=== PATIENT | female | born 1945 | race Caucasian/White ===

== ENCOUNTER → 2016-09-26 | Outpatient (CLI) | payer OTHER ==
[~2016-09-26] VITALS: Ht 167.6 cm; Wt 52.7 kg
[~2016-09-26] MED LIST: ALEVE220 MG PO; APAP500 PO; ASPIR 8181 MG PO; CADUET 2.5 MG-1 EACH PO; CELEBREX 200 M200 MG PO; CENTRUM SILVER1 EAC2 PO; HYDROXYCHLOROQ200 M1 PO; IBUPROFEN 200200 M1 PO; LISINOPRIL5 MG PO; MOBIC7.5 MG PO; OSCAL; PREDNISONE 5 MG5 M1 PO; TRAMADOL 50 MG50 MG PO; VITAMIN C500 M1 PO; VITAMIN D1000 UNI1 PO
--- NOTE | ~2016-09-26 | HPC ---
[facility] [address] [place] [address] PAIN MANAGEMENT CONSULTATION Name: LUAN VALDEZ Room #: REG Naveed Carlos#: [id number] Admission: 09/26/16 Attend Phys: Daren Garcia MD Discharge: Date of : 47 Report #: [id number] THIS REPORT FOR: //name// CC: Daren Patel MD DATE OF SERVICE: 09/26/2016 CHIEF COMPLAINT: Right thumb pain and radiating, burning, tingling and numbness into the right thumb and index finger as well as mild neck pain. HISTORY OF PRESENT ILLNESS: The patient comes today for evaluation of symptoms described above. I have seen her previously for spondylosis of the lumbar spine and sacroiliac joint pain, which has improved. She complains that she has had going worsening of pain in her right thumb, where she has deformity and some atrophy of the interosseous muscles between her thumb and her index finger. 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 She and her have a trip planned for 6 weeks to [place] coming up in mid October. She is concerned that she will be unable to share in the driving duties. She wakens often times at night with some pain that radiates into her hand from her neck. Repositioning of her neck oftentimes alleviates the symptoms. These have not been bothersome until recently. She has had no x-rays, no previous procedures and no history of trauma. PHYSICAL EXAMINATION: GENERAL: She is a pleasant and attractive 70-year-old, fit and healthy appearing. NECK: Reveals good range of motion with no restrictions. She has normal curvature. She has mild tenderness located over the vertebral prominence. MUSCULOSKELETAL: Strength in the upper extremities, biceps, triceps, brachioradialis and deltoid are all tested and normal. She has some difficulty with cupola hoist operator because of the thumb. Sensation is normal. Deep tendon reflexes are trace at biceps, triceps and brachioradialis. She also has decreased deep tendon reflexes in the lower extremities. No evidence of spinal stenosis or cord compression. No focal weakness is noted in any of the muscle collaborative teacher of the upper or lower extremities. X-rays none. IMPRESSION: 1. Cervical spondylosis with likely intermittent radicular symptoms following [facility] [address] [place] [address] PAIN MANAGEMENT CONSULTATION Name: LUAN VALDEZ Suzan Room #: REG [facility] [id number] Admission: 09/26/16 Attend Phys: Daren Garcia MD Discharge: Date of : 46 Report #: [id number] the C6 distribution into the right thumb and index finger. These are not severe and are not constant. 2. Osteoarthritis right thumb, metacarpophalangeal joint. RECOMMENDATIONS: Discussion about how to manage these likely degenerative conditions followed. We decided that we will perform some plain film x-rays to look for alignment changes and degenerative disk disease that can be picked up on a plain film x-ray as a scanning test. It should give her some indication of whether or not she has any significant cervical changes that may need to be addressed further or need to be watched over time. I have also recommended x-ray of the right hand and thumb to determine the degree of osteoarthritis in that joint. It can also determine whether or not there seems to be a ____ joint space, so that I can perform an injection for her before she and her travel and that ____ phalangeal injection can be quite helpful and provide duration of response suitable as a tool. She continues on Celebrex as prescribed earlier for her low back condition, and a followup visit is scheduled after we have the results for x-rays. <ELECTRONICALLY SIGNED> By: Daren Garcia MD 10/27/16 1130 [id number] Daren Garcia MD /nt
[2016-09-26 12:41] VITALS: BP 162/86
== END | disposition home or self-care (01) ==
LOC: PAIN 07:05
DX: M18.11 Unilateral primary osteoarthritis of first carpometacarpal joint, right hand (principal); M47.892 Other spondylosis, cervical region

== ENCOUNTER → 2017-02-28 | Outpatient (CLI) | payer OTHER ==
[~2017-02-28] VITALS: Ht 165.1 cm; Wt 53.5 kg
[~2017-02-28] MED LIST changes: +APAP650 PO
--- NOTE | ~2017-02-28 | HPC ---
[facility] [address] [place] [address] PAIN MANAGEMENT CONSULTATION Name: JOSÉ MIGUELAILYN Suzan Room #: REG LUKE Carlos#: [id number] Admission: 02/28/17 Attend Phys: Daren Garcia MD Discharge: Date of : 46 Report #: [id number] THIS REPORT FOR: //name// CC: Daren Patel DATE OF SERVICE: 02/28/2017 Followup visit for chronic sacroiliac joint pain. The patient returns to pain clinic today to discuss the possibility of radiofrequency of the sacroiliac joint nerves. She has heard about cooled radiofrequency. We did that for a while but found the equipment to be burdensome and no better results with that versus a technique we have established with bilateral 15 cm needles, which are used to provide a layer of lesions effectively denervating the sacroiliac joint. This allows us to denervate the L5 dorsal ramus as well as the S1, S2 and S3 branches effectively. Success rate has been up to 60-70% with patients that I performed this on. As I told the patient, this is a commonly performed procedure for patients who have had extensive lumbar fusions through the sacrum. There is generally hypermobility in the circumstance involving the sacroiliac joints. The patient has a past medical history of rheumatoid arthritis. She has been debating whether or not to go on a biologic agent and discussing this with the food service manager. She will be having surgery on her right wrist, where she has some subluxation of her thumb. Today, the most pressing pain is pain in the right sacroiliac joint area where there is localized tenderness. This area is very well localized and does respond to local injections, which have been performed both therapeutically and diagnostically. Her therapeutic benefit has been weaning leading us to radiofrequency as an attempt to provide longer relief. MEDICATIONS: Unchanged. ALLERGIES: PENICILLIN. PHYSICAL EXAMINATION: GENERAL: She is a very slender, fit appearing 71-year-old. Changes of rheumatoid arthritis are noted in the hands. VITAL SIGNS: Blood pressure is 121/78, heart rate 79 and respirations 14. EXTREMITIES: She has a positive BLANCA on the right and localized tenderness of the sacroiliac joint. No pain in the hip with internal and external rotation. Straight leg raising is performed without radiculopathy. [address] [address] PAIN MANAGEMENT CONSULTATION Name: AILYN VALDEZ Room #: REG [facility].#: [id number] Admission: 02/28/17 Attend Phys: Daren Garcia MD Discharge: Date of : 46 Report #: [id number] IMPRESSION: Sacroiliitis, right side. RECOMMENDATION: Sacroiliac joint radiofrequency ablation under fluoroscopic guidance. Procedure was explained in detail once again to the patient. We will preauthorize before going forward. I think that this is very appropriate procedure at this stage for her. She would like to avoid any additional strong pain medication. She has been on tramadol, which I renewed it for her today under terms of our opioid agreement. By: [id number] Daren Garcia MD /nt
[2017-02-28 13:54] VITALS: BP 121/78
== END | disposition home or self-care (01) ==
LOC: PAIN 06:46
DX: M53.3 Sacrococcygeal disorders, not elsewhere classified (principal); M06.9 Rheumatoid arthritis, unspecified

== ENCOUNTER → 2017-04-01 | Outpatient (CLI) | payer OTHER ==
[~2017-04-01] VITALS: Ht 167.6 cm; Wt 51.7 kg
[2017-04-01 09:10] VITALS: BP 155/90
== END | disposition home or self-care (01) ==
LOC: PAIN 06:42
DX: M47.816 Spondylosis without myelopathy or radiculopathy, lumbar region (principal); M53.3 Sacrococcygeal disorders, not elsewhere classified; G89.29 Other chronic pain; Z88.0 Allergy status to penicillin; Z79.899 Other long term (current) drug therapy; Z98.890 Other specified postprocedural states

== ENCOUNTER → 2017-04-15 | Outpatient (CLI) | payer OTHER ==
[~2017-04-15] VITALS: Ht 167.6 cm; Wt 52.4 kg
--- NOTE | ~2017-04-15 | HPC ---
[facility] [place] [address] [place] [address] PAIN MANAGEMENT CONSULTATION Name: AILYN VALDEZ Room #: REG [facility] Gabby.#: [id number] Admission: 04/15/17 Attend Phys: Daren Garcia MD Discharge: Date of : 46 Report #: [id number] THIS REPORT FOR: //name// CC: Daren Murphyie Jorge DATE OF SERVICE: 04/15/2017 Followup visit for sacroiliac joint pain. The patient was in the pain clinic today for a short visit. She came in today to report that her pain score is 0 following a radiofrequency ablation of the dorsal medial branch nerves serving the sacroiliac joint. She is very happy with her response. She has been pain free, almost from the day of her treatment. We discussed the procedure again at length, how it was performed, I shared the x-rays with her. The duration of response following radiofrequency varies, we are hopeful for a good long duration. I will be happy to see her back in the pain clinic if this pain begins to return. She was discharged without followup visit. By: 1720 1745 Daren Garcia MD /nt
[2017-04-15 10:41] VITALS: BP 144/81
== END | disposition home or self-care (01) ==
LOC: PAIN 07:25
DX: M53.3 Sacrococcygeal disorders, not elsewhere classified (principal); Z98.890 Other specified postprocedural states

== ENCOUNTER → 2017-06-17 | Outpatient (CLI) | payer OTHER ==
[~2017-06-17] VITALS: Ht 167.6 cm; Wt 53.1 kg
--- NOTE | ~2017-06-17 | HPC ---
[facility] [address] [place] [address] PAIN MANAGEMENT CONSULTATION Name: AILYN VALDEZ Room #: REG [facility] Carlos#: [id number] Admission: 06/17/17 Attend Phys: Daren Garcia MD Discharge: Date of : 46 Report #: [id number] THIS REPORT FOR: //name// CC: Daren Patel DATE OF SERVICE: 06/17/2017 Followup visit for right sacroiliac joint pain. The patient had a radiofrequency ablation. For 2 months, she had no pain. The pain then returned almost back to baseline. This is very discouraging that the pain came back so quickly, oftentimes 6 months to over a year is achieved by radiofrequency. On the other hand, I think we firmly identified that this pain can be blocked for an extended period of time. Two months is a long time and the regeneration of the nerves suggested that we might be able to provide further relief and perhaps longer in duration with another ablation procedure in the future. We will need to see preauthorization before going forward. She would like her sacroiliac injection today. I have been able to provide her with relief from those injections in the past, although it has been shorter term. I have agreed to provide that for her in lieu of medication. She is on tramadol 50 mg twice a day and would like to avoid anything stronger. Minimal side effects with tramadol and that in combination with single Celebrex has been enough to reduce her pain by about 50%. PHYSICAL EXAMINATION: GENERAL: She is young appearing for age, slender and appears fit. VITAL SIGNS: Blood pressure is 143/77, heart rate 74. BMI is 18.6. MUSCULOSKELETAL: Localized tenderness over the sacroiliac joint is noted with a positive Debi. IMPRESSION: Sacroiliac joint pain. PROCEDURES: 1. Sacroiliac injection under fluoroscopic guidance. 2. Renew tramadol 50 mg b.i.d. x 3 months. 3. Celebrex 200 mg once daily. All side effects were reviewed. Risks of medication. DESCRIPTION OF PROCEDURE: She was placed prone, skin was prepped with ChloraPrep. Skin was anesthetized over the right sacroiliac joint. Using fluoroscopic guidance, I advanced the needle in the inferior portion of the joint. I injected 0.25 mL of Omnipaque to demonstrate an excellent arthrogram in the sacroiliac joint followed by 1 mL of 0.5% bupivacaine mixed with 40 mg of triamcinolone. She tolerated the procedure well, was [place] [address] PAIN MANAGEMENT CONSULTATION Name: AILYN VALDEZ Room #: REG [facility] [id number] Admission: 06/17/17 Attend Phys: Daren Garcia MD Discharge: Date of : 46 Report #: [id number] and discharged with a followup visit planned as needed. We may again if she would request repeat the sacroiliac joint ablation procedure performed previously with hopes of longer duration. By: 1601 2220 Daren Garcia MD /nt
[2017-06-17 15:24] VITALS: BP 143/77
== END ==
LOC: PAIN 07:36
DX: M53.3 Sacrococcygeal disorders, not elsewhere classified (principal); M54.5 Low back pain; I10 Essential (primary) hypertension; Z88.0 Allergy status to penicillin; Z79.899 Other long term (current) drug therapy

== ENCOUNTER → 2017-08-07 | Outpatient (CLI) | payer OTHER ==
[~2017-08-07] VITALS: Ht 167.6 cm; Wt 52.2 kg
[~2017-08-07] MED LIST changes: +ARAVA10 MG PO
--- NOTE | ~2017-08-07 | HPC ---
[facility] [place] [place] [address] PAIN MANAGEMENT CONSULTATION Name: AILYN VALDEZ Room #: REG [facility]#: [id number] Admission: 08/07/17 Attend Phys: Donald Sanchez DO Discharge: Date of : 46 Report #: [id number] THIS REPORT FOR: //name// CC: Donald Patel DATE OF SERVICE: 08/07/2017 CHIEF COMPLAINT: Right sacroiliac joint dysfunction. HISTORY OF PRESENT ILLNESS: As you know, the patient is a 71-year-old female who suffers from right sacroiliac joint dysfunction for which she receives intraarticular SI joint injections by Dr. Garcia. Her most recent intraarticular SI joint injection was on 06/17/2017. At that visit, the patient reported improvement in symptoms with the injection for about 80% improvement for approximately 3 months. Unfortunately, the patient has had recurrence of symptoms for which she places pain score today at an 8/10. States walking, standing, sitting, lying down exacerbates symptoms and appears to worsen as the day goes on. Medications and intraarticular SI joint injections appear to improve pain. She has returned today in followup visit requesting to undergo a right SI joint injection under fluoroscopic guidance to address recurrent SI joint dysfunction pain. ALLERGIES: PENICILLIN. CURRENT MEDICATIONS: Arava, tramadol, celecoxib, acetaminophen, lisinopril, multivitamin, cholecalciferol, ascorbic acid, Os-Jose, prednisone. SOCIAL HISTORY: The patient denies tobacco use. Denies IV or illicit drug use. Admits to approximately 5 alcoholic beverages per week. She is retired years ago, unaccompanied. IMAGING: No new imaging available. PHYSICAL EXAMINATION: VITAL SIGNS: Blood pressure 153/82, pulse is 82, respiratory rate 16, unlabored, the patient 99% on room air. Height 5 feet 6 inches tall, weight 115 pounds, BMI calculated 18.6. GENERAL: Well-developed, well-nourished, well-hydrated, thin 71-year-old female appearing stated age, placing current pain score at 8/10. HEENT: Normocephalic, atraumatic. Pupils equal, round, reactive to light. Extraocular muscles are intact. EXTREMITIES: Show no clubbing, no cyanosis, no edema. MUSCULOSKELETAL: There is a significant palpatory tenderness over the right SI [address] [address] PAIN MANAGEMENT CONSULTATION Name: AILYN VALDEZ Room #: REG CLI [facility]#: [id number] Admission: 08/07/17 Attend Phys: Donald Sanchez DO Discharge: Date of : 46 Report #: [id number] joint. Deep palpation to the area causes intensification of pain. Muscle bulk and tone equal and symmetrical in lower extremities. She is intact to light touch from L1 through S2 dermatomes. Gait is antalgic favoring right lower extremity over left. There is noted pelvic unleveling with the patient standing flat. The right innominate is higher and rotated anteriorly. ASSESSMENT: Right sacroiliac joint dysfunction. PLAN: 1. The patient returns today in followup visit requesting a right sacroiliac joint injection under fluoroscopic guidance. The patient has been followed by my partner, Dr. Daren Garcia for which she is receiving right sacroiliac joint injections. These appear to be working well. Most recent provided about 80% improvement in overall pain. She returns today to undergo the next in the series of right sacroiliac joint injections under fluoroscopic guidance in hopes of improving pain. The patient has been advised the risks and benefits of the procedure. These risks include, but not necessarily limited to bleeding, bruising, infection, worsening pain, no relief of pain, also risk of temporary or permanent muscle weakness, temporary or permanent nerve damage, possible joint destruction and . The patient understood and wished to proceed. 2. No medication changes were made at today's visit. The patient will continue current medical therapy as previously prescribed. 3. We will see the patient back in followup visit on an as needed basis for a right sacroiliac joint injection or to discuss other treatment options available for sacroiliac joint dysfunction PROCEDURE NOTE PROCEDURE: Right sacroiliac joint injection under fluoroscopic guidance. This is the second procedure of the fourth series that the patient is undergoing. After obtaining written consent, the patient was taken back to the fluoroscopy suite and placed in a prone position with a pillow under the pelvis to decrease the lumbar lordosis. The skin of the gluteal-sacral area overlying the right sacroiliac joint was prepped and draped in an aseptic fashion. A medial to lateral oblique projection allowed separation of the anterior and posterior branches of the joint space. The skin and subcutaneous tissue overlying the target site of injection was anesthetized using 3 mL of 1% lidocaine. A 22-gauge 3-1/2 inch needle with a bent tip was directed into the inferior aspect of the sacroiliac joint using a posterior approach. After negative aspiration for heme, a total of 0.5 mL of Omnipaque was injected, outlining the coin-shaped inferior recess of the joint. Provocation responses consisting of intense buttock pain were negative. After negative aspiration for [address] [address] PAIN MANAGEMENT CONSULTATION Name: AILYN VALDEZ Room #: REG [facility]#: [id number] Admission: 08/07/17 Attend Phys: Donald Sanchez DO Discharge: Date of : 46 Report #: [id number] heme, 3 mL of solution containing 1 mL 40 mg per mL, 40 mg total triamcinolone, 3 mL of bupivacaine 0.5% was slowly injected. The needle was then retracted approximately correction and the needle track was flushed with 1 mL of 1% lidocaine. Needle was then removed. A sterile bandage was placed over the injection site. There were no new sensory deficits present in the lower extremities. The heart rate, pulse oximetry and blood pressure were continuously monitored after the procedure. There were no apparent complications. The patient tolerated the procedure well and was carefully escorted to the recovery room in stable condition. The VAS was 8/10 before the procedure and 2/10 ten minutes after the procedure. After meeting discharge criteria, the patient was discharged home. <ELECTRONICALLY SIGNED> By: Donald Sanchez DO 08/14/17 0907 [id number] [id number] Donald Sanchez DO /nt
[2017-08-07 09:32] VITALS: BP 153/82
== END | disposition home or self-care (01) ==
LOC: PAIN 05:17
DX: M53.3 Sacrococcygeal disorders, not elsewhere classified (principal); Z98.890 Other specified postprocedural states; Z88.0 Allergy status to penicillin; Z79.899 Other long term (current) drug therapy

== ENCOUNTER → 2017-10-10 | Outpatient (CLI) | payer OTHER ==
[~2017-10-10] VITALS: Ht 167.6 cm; Wt 52.4 kg
--- NOTE | ~2017-10-10 | HPC ---
[facility] [place] [address] [place] [address] PAIN MANAGEMENT CONSULTATION Name: AILYN VALDEZ Room #: REG LU[facility] PierreYaw#: [id number] Admission: 10/10/17 Attend Phys: Daren Garcia MD Discharge: Date of : 46 Report #: [id number] THIS REPORT FOR: //name// CC: Daren Patel DATE OF SERVICE: 10/10/2017 Followup visit for sacroiliac joint pain. The patient returns to pain clinic in followup. She saw another pain practitioner, Dr. Andrade yesterday. She is still searching for another answer for her pain. Dr. Andrade provided what sounds like an L5-S1 facet injection. We had a long discussion today, roughly 25 minutes to discuss options for further treatment. We discussed injections in the role of treatment, both as diagnostic injections and therapeutic. We have felt always that her injections in the sacroiliac joint have been diagnostic. She typically has complete pain relief in the recovery room sometimes, then for many days to follow. The pain then returns. Dr. Andrade suggested another pain generator apparently and tried to inject her L5-S1. Interestingly, she had good pain relief with that, although she scores her pain today as an 8/10 after her injection yesterday. She says the pain worsens as the day goes along and usually gets bad about 2 p.m. She has used tramadol to help manage her pain. She has some guilt about using this medication concerned that she is on a strong pain medication opioid. She also uses Celebrex with some benefit. She is here today to discuss medication management as well. We discussed it at some length with the conclusion of her visit. She feels that because she has significant scoliosis of the thoracolumbar spine, that this identifies it as a positive pain generator. I have informed her that curvature and x-rays do not diagnose pain unfortunately. Pain often times can come with a very minimal change in spinal alignment and anatomy and can also be absent in patients who have significant curvatures. This makes diagnosis a challenge. Part of our treatments in the past have been geared towards diagnosis. We may never fully identify the exact pain mechanisms and there may be multiple pain generators. All this was communicated to her. We have talked back contributing factors to pain, both physical as well as stress related. She understands that there are multiple contributing features to pain and understands also the pain must be managed, not necessarily cured. PQRS review was performed. She does have longstanding osteoarthritis and [address] [address] PAIN MANAGEMENT CONSULTATION Name: AILYN VALDEZ Room #: [facility] [id number] Admission: 10/10/17 Attend Phys: Daren Garcia MD Discharge: Date of : 46 Report #: [id number] degenerative joint disease. She carries a diagnosis of lupus since age 19 and has been treated with steroids for some time. Her BMI is 18.7, this is normal for her. She has seen no gain or loss. Vital signs: Blood pressure 144/88, heart rate 91, respirations 14, O2 sat 99. Her pain intensity today is scored is an 8/10 despite telling me earlier that her pain was relieved completely by the injection yesterday. She is a fall risk, but this is accidental. She tripped on steps and fell sideways in April, has not fallen since. She has a history of hypertension. She is not on an opioid contract, having taken only very small amounts of schedule III opioid tramadol. Functional assessment tool has been performed. She does not smoke. I have reviewed all her medications in detail. PHYSICAL EXAMINATION: Continues to reveal primarily tenderness over the right sacroiliac joint. It does not radiate in a radicular fashion. She has some mild pain also on the spine with back extension and lateral tilt. Some of this may be consistent with mild facet arthropathy as well. IMPRESSION AND PLAN: 1. Chronic low back pain with spondylosis. Sacroiliac mechanism is suspected, although there may be other pain generators as well. 2. Management of high risk medication, tramadol. We have not even taken to calculating MME for tramadol. She uses no more than two to three tablets a day at the worst. I will continue her on this indefinitely. She was given a prescription today for 60 tablets with 2 refills. She will be seen back in the pain clinic as needed in 3 months. <ELECTRONICALLY SIGNED> By: Daren Garcia MD 11/13/17 1640 1459 28 Daren Garcia MD /nt
[2017-10-10 14:12] VITALS: BP 144/88
== END ==
LOC: PAIN 06:58
DX: M53.3 Sacrococcygeal disorders, not elsewhere classified (principal); M47.896 Other spondylosis, lumbar region; Z79.899 Other long term (current) drug therapy

== ENCOUNTER → 2018-09-22 | Outpatient (CLI) | payer OTHER ==
[~2018-09-22] VITALS: Ht 167.6 cm; Wt 50.4 kg
[~2018-09-22] MED LIST changes: +ADVIL200 M3 PO; +FLECTOR PATCH1 EA TOP
--- NOTE | ~2018-09-22 | HPC ---
[facility] [address] [address] PAIN MANAGEMENT CONSULTATION Name: AILYN VALDEZ Room #: REG LUKE PerezYawAnnaleeYaw#: [id number] Admission: 09/22/18 Attend Phys: Daren Garcia MD Discharge: Date of : 47 Report #: [id number] THIS REPORT FOR: //name// CC: Daren Patel MD DATE OF SERVICE: 09/22/2018 Followup visit for longstanding chronic low back pain with radiation into the right hip. Lumbar spondylosis and radiculopathy. The patient returns to pain clinic for the first time in over a year. She has been bouncing back and forth between my clinic and [facility] where she has been seeing Dr. Andrade and Dr. Oneill. She suffers from chronic pain in the right hip. It is very well localized. Over the course of the last several years, we have tried to identify specific pain generator based upon her local tenderness and she has been a bit of a conundrum. Local injections in the sacroiliac joint in the past seem to be on spot. She would receive substantial pain relief oftentimes for many weeks at a time. I found this diagnostic. This led to several years of injecting the sacroiliac joint, but the pain persisted. We performed a radiofrequency ablation of the posterior dorsal rami and this was helpful for a longer duration, also leading to thoughts that the sacroiliac joint was a primary generator. Over the course of the last 12 months, Dr. Andrade has taken a different tact injecting at first L5-S1 facet and then treating her for piriformis syndrome with local injections and steroids. She recently saw Dr. Oneill who injected Botox. Unfortunately, the most recent series of injections has also been unhelpful or at best short lived. Today, she reports that the pain is still present and increases in severity. Pain intensity is a 4, exacerbated by walking and prolonged standing. Many days as the afternoon comes, she has more and more discomfort and this is alleviated only by use of ice and medication. MEDICATIONS: Ibuprofen, Flector patch, tramadol 50 mg q.8 hours, Tylenol Extra Strength 2 tablets b.i.d., Zestril, multivitamins, ascorbic acid, prednisone 5 mg, 3 mg of tablet taken daily. ALLERGIES: PENICILLIN. PQRS: She is on no blood thinning medications. She is currently on no treatment for hypertension. SOCIAL HISTORY: She denies use of tobacco, drinks alcohol socially[place] [address] PAIN MANAGEMENT CONSULTATION Name: AILYN VALDEZ [facility]: [facility] [id number] Admission: 09/22/18 Attend Phys: Daren Garcia MD Discharge: Date of : 47 Report #: [id number] a fall risk and has not fallen over the course of the last 3 months, but her gait has been worsening. She now appears to have developed over the course of the last year a foot drop which will be described below. PHYSICAL EXAMINATION: Pleasant female. Blood pressure 161/87, heart rate 71, respirations 18. BMI is 18.0 typical for her, a little below last year. She has always been under 20. Pain intensity 4/10. She moves from sitting to standing position and walks with antalgic gait. Foot drop is immediately identified on the right. She has tenderness across the lumbar spine. Forward flexion and extension of the lumbar spine are performed with mild discomfort. Straight leg raising is performed without discomfort. No obvious signs of sciatica in both the supine and sitting position. Deep tendon reflexes are 2+ at the knees, absent at the ankle bilaterally. Sensation is slightly diminished along the L5 distribution. I reviewed her old MRIs which shows significant degenerative changes throughout, perhaps most notably at L4-L5, there is severe central stenosis and bilateral neural foraminal stenosis. At L5-S1, there is also foraminal stenosis due to a combination of disk height loss and foraminal disk protrusion. There is a synovial cyst extending into the right lateral recess, causing effect on the descending right S1 nerve root. IMPRESSION: 1. Chronic right hip pain now with foot drop, suggesting L5 nerve compression. 2. Lumbar radiculopathy. 3. History of spondylosis with response to diagnostic injections throughout the sacroiliac and lumbar spine. 4. History of lupus, on chronic steroid low dose. 5. Osteoarthritis, status post bilateral knee replacements 2012, 2013. RECOMMENDATIONS: 1. She has seen Dr. Henson in surgical consultation. I would suggest that she consider reviewing her surgical options with Dr. Henson for her nerve compression findings on both the MRI and now present on physical exam with foot drop on the right. Decompression of the right L5 nerve root may provide pain relief. She cannot tell me how long she has had the foot drop. 2. We can consider an epidural injection. She had a number of injections prior to seeing me in 2014. The injections were performed by Dr. Ohara at Pain were unhelpful. 3. She asked about other options and I spent some time discussing spinal cord stimulation with her and process leading to the implant. There are some individuals who have bypassed lumbar surgery and have sought out stimulation for pain relief. The foot drop; however, is concerning. No medications were ordered at this time. She should decide which pain clinic [facility] [address] [address] PAIN MANAGEMENT CONSULTATION Name: AILYN VALDEZ Room #: REG LUKE Gonzalez#: [id number] Admission: 09/22/18 Attend Phys: Daren Garcia MD Discharge: Date of : 47 Report #: [id number] she wants to stick with. We had been willing to provide her medication management if she would like to go forward. By: [id number] Daren Garcia MD /nt
[2018-09-22 08:54] VITALS: BP 161/87
--- NOTE | 2018-09-22 08:56 | NUR ---
Pain Clinic Assessment: 1. History of Osteoarthritis: Left Lower Extremity Right Lower Extremity History of Rheumatoid Arthritis: Not Applicable 2. Height: 5 ft. 6 in. 167.6 cm. Weight: 111.2 lb. oz. 50.440 kg. Patient's BMI: 18.0 3. Vital Signs: BP: 161/87 Pulse: 71 Resp: 18 Temp: 02 Sat: ECG Mon: 4. Pain Intensity: 4 5. Fall Risk: Dizziness: N Needs help standing or walking: N Fallen in the last 3 months: N Fall risk comments: 6. Patient on Blood Thinner: None 7. History of Hypertension: Y 8. Opioid Therapy greater than 6 weeks: N Opiate Contract Signed: 9. Risk Assessment Tool Provided: 10. Functional Assessment Tool: 11. Recreational Drug Use: Never Drug Type: Tobacco Use: Never Smoker Tobacco Type: Amount or Packs/day: How Many Years: Alcohol Use: Yes Frequency: Quant:
== END ==
LOC: PAIN 07-07 12:53
DX: M47.26 Other spondylosis with radiculopathy, lumbar region (principal); G89.29 Other chronic pain; M25.551 Pain in right hip; M17.0 Bilateral primary osteoarthritis of knee; Z96.653 Presence of artificial knee joint, bilateral; Z87.39 Personal history of other diseases of the musculoskeletal system and connective tissue

== ENCOUNTER → 2018-10-06 | Outpatient (CLI) | payer OTHER ==
[~2018-10-06] VITALS: Ht 152.4 cm; Wt 51.8 kg
[~2018-10-06] MED LIST changes: +TYLENOL EXTRA500 MG PO
--- NOTE | ~2018-10-06 | HPC ---
[facility] [place] [address] [place] [address] PAIN MANAGEMENT CONSULTATION Name: AILYN VALDEZ Room #: REG [facility] Gabby.#: [id number] Admission: 10/06/18 Attend Phys: Daren Garcia MD Discharge: Date of : 47 Report #: [id number] THIS REPORT FOR: //name// CC: PRATEEK Patel DATE OF SERVICE: 10/06/2018 The patient returns today for an L5-S1 transforaminal epidural injection. She has seen Dr. Henson since her last visit when we had an extensive consultation regarding options for treatment. Dr. Henson felt that surgery was likely to provide little benefit and increase the risk that she would have some increasing pain and debility. He informed her that he feels that she should continue to try and manage her symptoms conservatively with medication. We will try a transforaminal injection; if it is not helpful, then I would certainly not pursue injection treatments further. She has had a number of injections with Dr. Andrade, but nothing directed at the L5 nerve root where it looks like she has some compression based upon her foot drop. Most of her pain is up in the hip. We will see if we can alleviate some of that with the L5 treatment. She is on tramadol taking 2-3 tablets a day. She finds it is helpful with few side effects. We discussed its mechanism of action, working mildly on the opioid receptor as well as the serotonin system. She would like to continue taking it and I provided her with a prescription for vacation with 2 months noted. Pharmacies are willing to fill such prescriptions understanding that many patients take time during the winter to go to warmer climate, that is certainly the case in the patient's situation. She will safeguard her medications carefully. I have had to resign an opioid agreement. Dr. Andrade provided her previous prescriptions, but she would like to receive medication management and further pain management through our clinic going forward. IMPRESSION: Severe degenerative spine disease with lumbar radiculopathy on the right involving the right hip and weakness with foot drop involving the L5 nerve root. RECOMMENDATIONS: Right L5-S1 transforaminal epidural injection. DESCRIPTION OF PROCEDURE: He was taken to fluoroscopic suite, placed prone, skin prepped with ChloraPrep. Skin anesthetized over the L5-S1 neural foramen. Using triplanar fluoroscopic views, I advanced the needle into the neural foramen. No blood or CSF was aspirated. I injected 0.25 mL of Omnipaque. I did reposition the needle in order to get some epidural spread [place] [address] PAIN MANAGEMENT CONSULTATION Name: AILYN VALDEZ Room #: REG [facility] [id number] Admission: 10/06/18 Attend Phys: Daren Garcia MD Discharge: Date of : 47 Report #: [id number] the neural foramen. I then injected a total of 4 mL of 0.5% lidocaine mixed with 80 mg of triamcinolone. She tolerated the procedure well and was observed for 45 minutes and discharged. Followup visit planned as needed for medication management or other treatments in the next 2 months after she returns from [place]. By: [id number] Daren Garcia MD /nt
[2018-10-06 14:51] VITALS: BP 182/92
--- NOTE | 2018-10-06 15:08 | NUR ---
Pain Clinic Assessment: 1. History of Osteoarthritis: Left Lower Extremity Right Lower Extremity History of Rheumatoid Arthritis: Not Applicable 2. Height: 5 ft. 7 in. 152.4 cm. Weight: 114.2 lb. oz. 51.801 kg. Patient's BMI: 22.3 3. Vital Signs: BP: 182/92 Pulse: 72 Resp: 14 Temp: 02 Sat: 100 ECG Mon: 4. Pain Intensity: 4 5. Fall Risk: Dizziness: N Needs help standing or walking: N Fallen in the last 3 months: N Fall risk comments: 6. Patient on Blood Thinner: None 7. History of Hypertension: Y 8. Opioid Therapy greater than 6 weeks: N Opiate Contract Signed: 9. Risk Assessment Tool Provided: 10. Functional Assessment Tool: 11. Recreational Drug Use: Never Drug Type: Tobacco Use: Never Smoker Tobacco Type: Amount or Packs/day: How Many Years: Alcohol Use: Yes Frequency: Quant:
== END | disposition home or self-care (01) ==
LOC: PAIN 07:20
DX: M51.16 Intervertebral disc disorders with radiculopathy, lumbar region (principal); Z88.0 Allergy status to penicillin; Z79.899 Other long term (current) drug therapy

== ENCOUNTER → 2018-12-16 | Outpatient (CLI) | payer OTHER | LOC: HYPER 07:46 | DX: L97.812 Non-pressure chronic ulcer of other part of right lower leg with fat layer exposed (principal); K21.9 Gastro-esophageal reflux disease without esophagitis; M32.8 Other forms of systemic lupus erythematosus; Z96.653 Presence of artificial knee joint, bilateral; Z95.5 Presence of coronary angioplasty implant and graft; Z79.52 Long term (current) use of systemic steroids; Z90.710 Acquired absence of both cervix and uterus ==

== ENCOUNTER → 2018-12-25 | Outpatient (CLI) | payer OTHER ==
[~2018-12-25] VITALS: Ht 170.2 cm; Wt 51.9 kg
--- NOTE | ~2018-12-25 | HPC ---
[facility] [address] [address] PAIN MANAGEMENT CONSULTATION Name: AILYN VALDEZ Room #: REG Naveed Gabby.#: [id number] Admission: 12/25/18 ������������������ Attend Phys: Daren Garcia MD Discharge: ������������������ Date of : 47 Report #: [id number] THIS REPORT FOR: //name// CC: Daren Patel DATE OF SERVICE: 12/25/2018 Followup visit for right L5-S1 radiculopathy. The patient returns to clinic today and reports that the right L5-S1 transforaminal epidural injection was very helpful. She has had a number of treatments and injections. This is the first sustained improvement we have seen. Pain relief is good for about 2 months and she would like to repeat the injection. As noted throughout the record, she has significant degenerative spine disease with multiple levels of involvement. She has had significant pain in the right and it is noted that there is a right-sided paracentral disk protrusion with cysts extending into the lateral recess causing mass effect on the right S1 nerve root also causing foraminal stenosis. PQRS review, positive for osteoarthritis involving lower extremities. Pain in her hips and knees. She is 5 feet 7 inches with a weight of 114. Her BMI is 17.9. This is normal for her. She scores her average pain intensity is a 4-5/10. She is a fall risk, having fallen once in the last 3 months. She is on no blood thinners. Dr. Patel provides her medications and she has hypertension, which is under treatment with lisinopril. All medications were reviewed and reconciled from the EMR. She is not currently taking opioid medication, but has used tramadol 50 mg and I renewed her prescription for infrequent use. She is at low risk for addiction per the opioid risk tool. She denies use of tobacco and alcohol. PHYSICAL EXAMINATION: GENERAL: She is pleasant, alert and oriented. VITAL SIGNS: Blood pressure 154/88, heart rate 84, respirations 14. She is able to independently move from sitting to standing position. Her gait is antalgic. She has degenerative spine disease and slight lumbar kyphosis. There is some rotational scoliosis as well. She has tenderness along the right side. She has positive straight leg raising on the right consistent with radiculopathy. Sensation is diminished along the right side. She has a bandaged wound. She apparently developed some hematoma, which was drained and is being treated with wound management. Wound is healing nicely. [facility] [address] [place] [address] PAIN MANAGEMENT CONSULTATION Name: AILYN VALDEZ Room #: REG [facility]#: [id number] Admission: 12/25/18 ������������������ Attend Phys: Daren Garcia MD Discharge: ������������������ Date of : 47 Report #: [id number] IMPRESSION: Severe degenerative spine disease with lumbar radiculopathy on the right. Weakness and foot drop have been noted. L5 nerve root involvement suspected. RECOMMENDATIONS: Transforaminal epidural injection L5-S1 under fluoroscopic guidance. PROCEDURE: She was taken to fluoroscopic suite. She was placed prone, skin prepped with ChloraPrep and anesthetized over the L5-S1 neural foramen. Using triplanar fluoroscopic views, I advanced needle into the neural foramen. 0.25 mL of Omnipaque was injected demonstrating spread along the nerve root, which was traced and medication extending into the epidural space and down along the S1 nerve root as well. This was then followed by 3 mL of 0.5% lidocaine mixed with 60 mg of triamcinolone. She had some discomfort during the injection, but this resolved in recovery room, although her pain score remained at 5 at discharge. Followup visit planned in 1-2 months. ��������������������������������������������� ���������������������������������������� By: ��������������������������������������������� 1610 0630 Daren Garcia MD /nt
[2018-12-25 14:30] VITALS: BP 154/88
--- NOTE | 2018-12-25 14:52 | NUR ---
Pain Clinic Assessment: 1. History of Osteoarthritis: Left Lower Extremity Right Lower Extremity History of Rheumatoid Arthritis: Not Applicable 2. Height: 5 ft. 7 in. 170.2 cm. Weight: 114.4 lb. oz. 51.891 kg. Patient's BMI: 17.9 3. Vital Signs: BP: 154/88 Pulse: 84 Resp: 14 Temp: 02 Sat: 98 ECG Mon: 4. Pain Intensity: 4-5 5. Fall Risk: Dizziness: N Needs help standing or walking: N Fallen in the last 3 months: Y Fall risk comments: 6. Patient on Blood Thinner: None 7. History of Hypertension: Y 8. Opioid Therapy greater than 6 weeks: N Opiate Contract Signed: 10/06/18 9. Risk Assessment Tool Provided: 0-LOW RISK 10. Functional Assessment Tool: 11. Recreational Drug Use: Never Drug Type: Tobacco Use: Never Smoker Tobacco Type: Amount or Packs/day: How Many Years: Alcohol Use: Yes Frequency: Quant:
== END | disposition home or self-care (01) ==
LOC: PAIN 12-22 13:09
DX: M51.16 Intervertebral disc disorders with radiculopathy, lumbar region (principal)

== ENCOUNTER → 2019-01-07 | Outpatient (CLI) | payer OTHER | LOC: HYPER 01-06 12:25 | DX: L97.812 Non-pressure chronic ulcer of other part of right lower leg with fat layer exposed (principal); R60.0 Localized edema; K21.9 Gastro-esophageal reflux disease without esophagitis; M32.8 Other forms of systemic lupus erythematosus; M32.9 Systemic lupus erythematosus, unspecified; Z79.52 Long term (current) use of systemic steroids; Z96.653 Presence of artificial knee joint, bilateral; Z95.5 Presence of coronary angioplasty implant and graft ==

== ENCOUNTER → 2019-01-22 | Outpatient (CLI) | payer OTHER | LOC: HYPER 06:45 | DX: L97.812 Non-pressure chronic ulcer of other part of right lower leg with fat layer exposed (principal); R60.0 Localized edema; M32.8 Other forms of systemic lupus erythematosus; K21.9 Gastro-esophageal reflux disease without esophagitis; Z96.653 Presence of artificial knee joint, bilateral; Z79.52 Long term (current) use of systemic steroids ==

== ENCOUNTER → 2019-02-16 | Outpatient (CLI) | payer OTHER ==
[~2019-02-16] VITALS: Ht 170.2 cm; Wt 51.3 kg
[~2019-02-16] MED LIST changes: +GABAPENTIN 100100 MG PO; +HYDROCODON-ACE1 EAC5 PO
--- NOTE | ~2019-02-16 | HPC ---
[facility] [place] [address] PAIN MANAGEMENT CONSULTATION Name: AILYN VALDEZ Room #: REG [facility] Carlos#: [id number] Admission: 02/16/19 ������������������ Attend Phys: Daren Garcia MD Discharge: ������������������ Date of : 47 Report #: [id number] THIS REPORT FOR: //name// CC: Daren Patel DATE OF SERVICE: 02/16/2019 Followup visit for severe low back pain with L5-S1 radiculopathy. The patient returns to pain clinic today after her last visit on 12/25/2018. I performed a transforaminal epidural injection on that date and it was unsuccessful. In fact, she may be slightly worse following the injection. She has more radicular pain now than she did previously. It is unfortunate because she had previously responded beautifully to a transforaminal injection before she left for the winter. I reviewed both films and they look reasonable. There is, however, no question that she has significant changes throughout the lumbar spine and it has been over 3 years since her last MRI. We talked about options for treatment. I have recommended that we proceed today with a diagnostic MRI without contrast and we will review the study to determine if she is a candidate for minimally invasive procedure or full surgery. She has been made aware of some of the newer procedures that are being performed for single level spinal stenosis through a friend. She might be a candidate, but we need a new MRI. PQRS review shows she has diffuse osteoarthritis and rheumatoid arthritis. She has always been small and her BMI is 17.7. She scores her pain intensity is a 10/10 on the right leg. She has not fallen in the last 3 months and does not appear to be a fall risk. She is on no blood thinners. She has a history of hypertension, under treatment. She has completed an opioid risk tool scoring 0 and she has an opioid agreement on her chart from September of this year for tramadol. She denies use of tobacco, but enjoys alcohol having a cocktail with her in the evening. PHYSICAL EXAMINATION: GENERAL: She is a pleasant female, alert and oriented. VITAL SIGNS: Blood pressure 149/88, heart rate 80, respirations 14. MUSCULOSKELETAL: She moves from a sitting to standing position independently. Her gait is antalgic. She has marked scoliosis of the lumbar spine and tenderness across the lumbosacral segment with positive straight leg raising discomfort on the right following an L5-S1 distribution. IMPRESSION: [place] [address] PAIN MANAGEMENT CONSULTATION Name: AILYN VALDEZ Room #: REG [facility] VicenteYaw#: [id number] Admission: 02/16/19 ������������������ Attend Phys: Daren Garcia MD Discharge: ������������������ Date of : 47 Report #: [id number] PLAN: 1. MRI. 2. Continue tramadol up to 3 tablets daily. 3. Hydrocodone trial 10/325, #30 tablets with instructions on using the medication. 4. Gabapentin trial 100 mg up to 300 mg t.i.d. Instructions given on use of these medications in a cautious fashion and we will discuss medications as well as her MRI once it has been sent to our office. Follow up within the month. ��������������������������������������������� ���������������������������������������� By: ��������������������������������������������� 1801 0746 Daren Garcia MD /nt
[2019-02-16 13:47] VITALS: BP 149/88
--- NOTE | 2019-02-16 14:09 | NUR ---
Pain Clinic Assessment: 1. History of Osteoarthritis: Left Lower Extremity Right Lower Extremity History of Rheumatoid Arthritis: Not Applicable 2. Height: 5 ft. 7 in. 170.2 cm. Weight: 113.0 lb. oz. 51.256 kg. Patient's BMI: 17.7 3. Vital Signs: BP: 149/88 Pulse: 80 Resp: 14 Temp: 02 Sat: 100 ECG Mon: 4. Pain Intensity: 10 5. Fall Risk: Dizziness: N Needs help standing or walking: N Fallen in the last 3 months: N Fall risk comments: 6. Patient on Blood Thinner: None 7. History of Hypertension: Y 8. Opioid Therapy greater than 6 weeks: Y Opiate Contract Signed: 10/06/18 9. Risk Assessment Tool Provided: 0-LOW RISK 10. Functional Assessment Tool: 11. Recreational Drug Use: Never Drug Type: Tobacco Use: Never Smoker Tobacco Type: Amount or Packs/day: How Many Years: Alcohol Use: Yes Frequency: Quant:
== END ==
LOC: PAIN 01-19 12:54
DX: M54.17 Radiculopathy, lumbosacral region (principal); M19.90 Unspecified osteoarthritis, unspecified site; M06.9 Rheumatoid arthritis, unspecified; I10 Essential (primary) hypertension; Z79.891 Long term (current) use of opiate analgesic; Z79.899 Other long term (current) drug therapy

== ENCOUNTER → 2019-02-19 | Outpatient (CLI) | payer OTHER | LOC: MRI 10:28 | DX: M47.26 Other spondylosis with radiculopathy, lumbar region (principal); M51.16 Intervertebral disc disorders with radiculopathy, lumbar region; M48.062 Spinal stenosis, lumbar region with neurogenic claudication; M25.78 Osteophyte, vertebrae; M41.86 Other forms of scoliosis, lumbar region; M85.68 Other cyst of bone, other site ==

== ENCOUNTER → 2019-03-24 | Outpatient (CLI) | payer OTHER | LOC: MRI 03-23 15:08 | DX: M50.31 Other cervical disc degeneration, high cervical region (principal); M50.21 Other cervical disc displacement, high cervical region; M48.02 Spinal stenosis, cervical region; M62.542 Muscle wasting and atrophy, not elsewhere classified, left hand; M62.541 Muscle wasting and atrophy, not elsewhere classified, right hand ==

== ENCOUNTER → 2019-03-30 | Outpatient (CLI) | payer OTHER ==
[~2019-03-30] VITALS: Ht 167.6 cm; Wt 50.3 kg
[2019-03-30 10:32] VITALS: BP 181/96
--- NOTE | 2019-03-30 10:37 | NUR ---
Pain Clinic Assessment: 1. History of Osteoarthritis: Left Lower Extremity Right Lower Extremity History of Rheumatoid Arthritis: Not Applicable 2. Height: 5 ft. 6 in. 167.6 cm. Weight: 111.0 lb. oz. 50.349 kg. Patient's BMI: 17.9 3. Vital Signs: BP: 181/96 Pulse: 83 Resp: 16 Temp: 02 Sat: 97 ECG Mon: 4. Pain Intensity: 9 5. Fall Risk: Dizziness: N Needs help standing or walking: N Fallen in the last 3 months: N Fall risk comments: 6. Patient on Blood Thinner: None 7. History of Hypertension: Y 8. Opioid Therapy greater than 6 weeks: Y Opiate Contract Signed: 10/06/18 9. Risk Assessment Tool Provided: 0-LOW RISK 10. Functional Assessment Tool: 11. Recreational Drug Use: Never Drug Type: Tobacco Use: Never Smoker Tobacco Type: Amount or Packs/day: How Many Years: Alcohol Use: Yes Frequency: Quant:
--- NOTE | 2019-04-30 16:33 | HPC ---
[facility] [address] [address] PAIN MANAGEMENT CONSULTATION Name: AILYN VALDEZ Room #: REG LUKE Carlos#: [id number] Admission: 03/30/19 Attend Phys: Daren Garcia MD Discharge: Date of : 46 Report #: [id number] THIS REPORT FOR: //name// CC: Daren Reyes DATE OF SERVICE: 03/30/2019 Followup visit for severe lumbar radiculopathy secondary to spinal stenosis and marked degenerative change below the level of L2-L3. The patient returns to the pain clinic today and would like an injection. I have agreed to provide it for her. She has in the interim since her last visit seen the neurosurgeon team at Dr. Miller's office and they have discussed a small decompression that may be helpful for her radicular pain on the right. Until that can be accomplished, she would like to go forward with an injection and continue with conservative medications. She uses only Tylenol. She has been given some tramadol and uses it infrequently. We had an extensive conversation today about medication for chronic intractable pain. Lengthy discussion of probably 25 minutes. We discussed the opioid crisis in the [place]. We discussed the appropriate use of opioids and how medications can be used to improve quality of life for people in [facility]. It is not for everyone of course and there certainly are side effects. We reviewed all of those. We reviewed the opioid contract that we use on our patients and we talked about how those medications can be used in modest amounts to allow for day-to-day functioning. She has agreed to a small trial of tramadol 50 mg q.i.d. and if necessary may try hydrocodone. On physical exam on PQRS, her body is riddled with osteoarthritis and she has changes significant of rheumatoid arthritis. BMI is chronically low at 17.7. Pain score today is a 10/10. No falls in the last 3 months. She takes no blood thinners. She has a history of hypertension under treatment. Opioid risk tool score is 0/10. Again no opioids. Tramadol has been used moderately. Denies tobacco and enjoys having a cocktail with her in the evening. PHYSICAL EXAMINATION: Pleasant, slender female. Alert and oriented with no signs of depression, anxiety or overmedication. Blood pressure 181/96, heart rate 83 and respirations 16. Her gait is markedly antalgic. She has bilateral weakness of the lower extremities. Hip flexion, leg extension, plantar flexion and dorsiflexion are all performed, but she has generalized weakness throughout. Sensation is diminished. Deep tendon reflexes are absent. Straight leg raising is bilaterally positive and significantly worse on the right. [facility] [address] [place] [address] PAIN MANAGEMENT CONSULTATION Name: AILYN VALDEZ Suzan Room #: REG LUKE Gonzalez#: [id number] Admission: 03/30/19 Attend Phys: Daren Garcia MD Discharge: Date of : 46 Report #: [id number] IMPRESSION: Lumbar radiculopathy on the right. RECOMMENDATIONS: Right L4-L5 transforaminal epidural injection. I followed this with the midline L2-L3 injection and split the medication 50:50 in each location in order to provide coverage above and below what is felt to be the pain generator at the listhesis of L3-L4. She was taken to the fluoroscopic suite, placed prone, skin prepped with ChloraPrep. Skin was anesthetized first over the L4-L5 neural foramen. Using triplanar fluoroscopic views, I advanced the needle in the right neural foramen and injected 0.25 mL of Omnipaque to demonstrate an epidurogram. It traced out the nerve root as well. Medication was seen to extend along the nerve root laterally as well as into the epidural space. I injected 3 mL of 0.5% lidocaine mixed with 40 mg of triamcinolone. The skin was then anesthetized over the L2-L3 interspace. A 20-gauge Tuohy epidural needle advanced in the epidural space. At that location, I injected Omnipaque, again identified an epidurogram and followed it with 3 mL of 0.5% lidocaine mixed with the other 40 mg of triamcinolone. She tolerated the procedure well. Pain score was reduced to a 3 in recovery room. Followup visit planned in 1-2 months. No medications ordered. I will try and contact Dr. Brandon Miller to see if he feels that surgical intervention is warranted and she can be moved up on his very busy schedule. She had asked me if I would do this. <ELECTRONICALLY SIGNED> By: Daren Garcia MD 04/30/19 1633 1624 0055 Daren Garcia MD /nt
== END | disposition home or self-care (01) ==
LOC: PAIN 10:09
DX: M54.16 Radiculopathy, lumbar region (principal); G89.29 Other chronic pain; I10 Essential (primary) hypertension; M06.9 Rheumatoid arthritis, unspecified; Z88.0 Allergy status to penicillin; Z79.899 Other long term (current) drug therapy; Z98.890 Other specified postprocedural states

== ENCOUNTER → 2019-04-08 | Outpatient (CLI) | payer OTHER ==
[~2019-04-08] VITALS: Ht 167.6 cm; Wt 51.1 kg
[2019-04-08 10:39] VITALS: BP 157/123
--- NOTE | 2019-04-08 10:46 | NUR ---
Pain Clinic Assessment: 1. History of Osteoarthritis: Left Lower Extremity Right Lower Extremity History of Rheumatoid Arthritis: Not Applicable 2. Height: 5 ft. 6 in. 167.6 cm. Weight: 112.6 lb. oz. 51.075 kg. Patient's BMI: 18.2 3. Vital Signs: BP: 157/123 Pulse: 83 Resp: 18 Temp: 02 Sat: 97 ECG Mon: 4. Pain Intensity: 4-5 5. Fall Risk: Dizziness: N Needs help standing or walking: N Fallen in the last 3 months: Y Fall risk comments: 6. Patient on Blood Thinner: None 7. History of Hypertension: Y 8. Opioid Therapy greater than 6 weeks: Y Opiate Contract Signed: 10/06/18 9. Risk Assessment Tool Provided: 0-LOW RISK 10. Functional Assessment Tool: 11. Recreational Drug Use: Never Drug Type: Tobacco Use: Never Smoker Tobacco Type: Amount or Packs/day: How Many Years: Alcohol Use: Yes Frequency: Daily Quant: 1
--- NOTE | 2019-04-09 08:09 | HPC ---
[facility] [place] [address] PAIN MANAGEMENT CONSULTATION Name: JOSÉ MIGUELAILYN A Room #: REG [facility] Carlos#: [id number] Admission: 04/08/19 ������������������ Attend Phys: Lolita Urban Discharge: ������������������ Date of : 47 Report #: [id number] THIS REPORT FOR: //name// CC: Lolita Urban Aissatou Patel DATE OF SERVICE: 04/08/2019 CHIEF COMPLAINT: Severe lumbar radiculopathy secondary to spinal stenosis. HISTORY OF PRESENT ILLNESS: This is a pleasant 73-year-old female who returns to the pain clinic today for refill of her medications. She tells me that her pain score is a 4-5 today. She had a transforaminal epidural steroid injection by Dr. Daren Garcia on the . She tells us that she is at least 35% better, still getting some relief, it may be slightly higher than that. She is able to walk and stand months with less pain in her right leg and lower back. Her medications are helpful and she is getting ready to go out of town to see her mother who is 98 years old, so she is needing a refill of her tramadol before she goes out of town. The patient had started gabapentin a while ago and was titrating up on 100 mg pills. We did get a refill request for 300 mg pills from her pharmacy, which we did call in. We are under the understanding that she had titrated up to that and they had requested a change due to her titration. The patient tells us that in fact she is taking 100 mg pills, 2 in the morning, 1 late in the afternoon and 2 in the evening, so therefore she is wanting 100 mg pills. Those gabapentin were called in at the 100 mg strength instead of the 300. The patient finds it very beneficial in helping reduce some of her pain, but she is not able to tolerate higher doses because therefore then she experiences side effects of somnolence and some dizziness. The patient tells me she does have a surgery date of 05/[address] Miller at [facility] for back surgery, decompression, that she is hopeful will help with some of her radicular pain she is experiencing. ALLERGIES: PENICILLIN. CURRENT LIST OF MEDICATIONS: Tramadol 50 mg 2 tablets in the morning and 2 tablets late afternoon, gabapentin 100 mg two, one and two, Tylenol Extra Strength as needed, Zestril 5 mg daily, multivitamin, vitamin D, vitamin C, Os-Jose, prednisone 2 mg daily. PQRS: 1. She has significant osteoarthritis throughout her joints as well as rheumatoid arthritis. 2. Height is 5 feet 6 inches, weight is 112, BMI [place] 18[place] [address] PAIN MANAGEMENT CONSULTATION Name: AILYN VALDEZ Room #: REG CLN[facility]ed Gonzalez#: [id number] Admission: 04/08/19 ������������������ Attend Phys: Lolita Urban Discharge: ������������������ Date of : 46 Report #: [id number] 3. Vital signs: Blood pressure 157/123, pulse is 83, respirations 18, oxygen sat is 97. 4. Pain score is 4-5. 5. Denies dizziness, does not need help walking or standing, has fallen in the last 3 months. 6. The patient is not on any blood thinners, but does take medications for hypertension that she has not taken yet today. 7. Opioid therapy is greater than 6 weeks; therefore, an opioid signed contract is on the chart. Her risk assessment tool is low. Functional assessment is 29/70. 8. Recreational drug use, she denies. She is not a smoker and occasionally drinks alcohol. We did check the prescription monitoring system. The patient is filling appropriately for her medications in a timely fashion. PHYSICAL EXAMINATION: GENERAL: This is alert and orientated 73-year-old female who appears her stated age. HEENT: Normocephalic, atraumatic. Extraocular eye muscles are intact. Mucous membranes are moist. MUSCULOSKELETAL: She has bilateral weakness in her lower extremities with generalized weakness throughout and sensation is diminished. Straight leg raising is positive bilaterally, worse on the right. Her gait is markedly antalgic. IMPRESSION: 1. Lumbar radiculopathy. 2. Spinal stenosis. 3. History of lupus, on chronic steroids, low dose. 4. Osteoarthritis, status post bilateral knee replacements. 5. Chronic pain. 6. Complex medical management under terms of written opioid agreement. We reviewed the fact that opiate medications are being used to provide analgesia adequate to support activities of daily living, not attempting to achieve a specific pain score on the 0-10 Visual Analog Scale. The current opiate medications are providing sufficient analgesia to allow the patient to participate in activities of daily living. The patient is not exhibiting any aberrant behavior suggestive of drug diversion. The patient is not having any adverse reactions to medications. The patient is not suffering from daytime somnolence or mental acuity changes. The patient is managing opiate-induced constipation with appropriate [id number]-[id number] agents and dietary considerations. The patient was counseled on concern for caution with operating a motor vehicle while using opiate medications. [address] [address] PAIN MANAGEMENT CONSULTATION Name: AILYN VALDEZ Room #: REG LUKE Gonzalez#: [id number] Admission: 04/08/19 ������������������ Attend Phys: Lolita Urban Discharge: ������������������ Date of : 46 Report #: [id number] A physical exam was performed and the patient's functional status was evaluated. All patients with back pain were advised against the bed rest greater than 4 days and were advised to return to normal activities. Pain score assessment was noted and the treatment plan was reviewed with the patient. All current medications, both prescribed and OTC were reviewed and reconciled on the electronic medical record. Tobacco screening was accomplished and smoking cessation was advised when indicated. BMI was noted and diet/exercise modification was recommended for all patients following outside normal parameters. I reviewed with the patient today their responsibilities to safeguard prescription medications, reviewed their responsibility to utilize medications only as prescribed by the physician. They are to seek and receive pain medications only from 1 physician group ( [facility]). They are to use 1 pharmacy and keep the clinic informed if they change pharmacies. Their responsibilities include making followup visits in a timely fashion and to avoid abrupt discontinuation of medication usage. Their responsibilities further include bringing their medications (bottles from the pharmacy with residual pills) to the visit for possible confirmation of pill counts and the patient understands it is their responsibility to submit to random drug screens to ensure both that the medications prescribed are present, and that no other controlled substances are present. All prescriptions provided today were generated electronically. PLAN: 1. We discussed treatment options with the patient today. The patient is here for refill of her tramadol 50 mg #120 with one additional refill was given. 2. We discussed postoperative pain. She is having a decompression with Dr. Miller on 08/16. I explained to her that if Dr. Miller does give her a script for a stronger pain pill, she was to call our office and report what that medication is. She may take this for a few days postoperatively. The patient informed me that she does not like to take pain pills and may not take anything, but is aware that she will call us if she does receive a script. 3. The patient is taking gabapentin 100 mg tablets 2 in the morning, 1 later in the day and 2 before bedtime and requesting only 100 mg tablets, unable to titrate higher due to side effects. 4. Injection gave her at least 35%, possibly more relief from the transforaminal injection that she had only a week ago, still receiving benefit from that shot. 5. The patient is seen in collaboration with Dr. Derrick Ray who did see the patient as well today. The patient will call for an appointment after her surgery as needed. ��������������������������������������������� <ELECTRONICALLY SIGNED> ���������������������������������������� By: Lolita Urban ��������������������������������������������� 04/09/19 0809 [id number] Lolita Urban /demetri
== END ==
LOC: PAIN 06:52
DX: M54.16 Radiculopathy, lumbar region (principal); M48.062 Spinal stenosis, lumbar region with neurogenic claudication; M32.9 Systemic lupus erythematosus, unspecified; M17.10 Unilateral primary osteoarthritis, unspecified knee; G89.29 Other chronic pain; Z96.653 Presence of artificial knee joint, bilateral; Z79.52 Long term (current) use of systemic steroids; Z88.0 Allergy status to penicillin; Z79.899 Other long term (current) drug therapy

== ENCOUNTER → 2019-07-02 | Outpatient (CLI) | payer OTHER ==
[~2019-07-02] VITALS: Ht 167.6 cm; Wt 50.7 kg
[~2019-07-02] MED LIST changes: +HYDROCODON-ACE1 EAC7 PO; +LIPITOR40 MG PO; +NORCO 10-325 T1 EACH PO
--- NOTE | ~2019-07-02 | HPC ---
[facility] [address] [address] [place] [address] PAIN MANAGEMENT CONSULTATION Name: AILNY VALDEZ [id number] Admission: 07/02/19 Attend Phys: Daren Garcia MD Discharge: Date of : 47 Report #: [id number] THIS REPORT FOR: //name// CC: Daren Patel MD DATE OF SERVICE: 07/02/2019 Followup visit for severe low back pain with radiculopathy on the right. The patient returns to pain clinic today hoping for an epidural injection and other thoughts on managing her severe radicular pain. She has had a decompression laminectomy with Dr. Miller. This was mostly a central decompression and did not involve any decompression of the neuroforamen. She likely still has impingement at these locations and her pain is as bad as ever, perhaps worse now that she has postoperative issues as well. She has always been reluctant to use medication. She takes a little bit of tramadol. She is now about 2 months out. She is able to do only a few simple exercises and is able to ambulate only with marked antalgic features and with rotational scoliosis. PQRS: 1. History of diffuse osteoarthritis involving the left and right lower extremity. Spondylosis and curvature of the spine. 2. BMI of 18.1, typical for her. 3. Vital signs: Blood pressure of 171/108, heart rate is 75, and respirations 16. These numbers were consistently high throughout recovery room and she will be contacted this evening to follow up with her primary care physician. 4. A pain intensity is 10/10. This is worst she has ever had. 5. She is a fall risk and needs help standing and walking. 6. She is on no blood thinners. 7. She does have a history of hypertension, which is unfortunately much higher now. 8. She is on an opioid agreement and was signed in 2019. She is reluctant to use opioids and has tried gabapentin and muscle relaxants with only limited benefit. 9. She is at low risk for addiction scoring, 0 on the ORT score. 10. An underestimation of her functional assessment scores likely based on the score of 29/70. She really cannot do very little. 11. She denies the use of tobacco, but does drink alcohol at times in a social setting and probably in some ways self-medicating for her pain. She denies the use of alcohol in excess. [address] [address] PAIN MANAGEMENT CONSULTATION Name: AILYN VALDEZ Room #: REG CLI [facility]#: [id number] Admission: 07/02/19 Attend Phys: Daren Garcia MD Discharge: Date of : 47 Report #: [id number] PHYSICAL EXAMINATION: GENERAL: She is depressed, but pleasant. Vital signs and BMI are as noted above. She moves independently from sitting to standing position, but her gait is painful to watch, markedly antalgic and she has slow step movements. CHEST: Clear. CARDIAC: Rhythm is regular. MUSCULOSKELETAL: Examination of the spine reveals scarring that is healed. It is a small central lumbar scar. Bilateral straight leg raising is noted, but is most significant on the right following an L3, L4, and L5 distribution. IMPRESSION: 1. Severe right-sided radiculopathy likely due to severe neuroforaminal stenosis. 2. Post-laminectomy. She is only two months out and I have given her encouraging words today and hopeful that she will continue to see some improvement as she heals. 3. Situational depression due to chronic pain. RECOMMENDATIONS: Low dose hydrocodone 5 mg 2-3 times daily as a trial. Lengthy discussion about initiating a stronger pain medication cautiously at the lowest effective dose. We discussed the side effects, the opioid crisis, CDC guidelines, potential benefits and risks. I believe this is reasonable given her current severe pain status. We will follow up in 1 month. PROCEDURE: Two-level transforaminal epidural injection under fluoroscopic guidance. DESCRIPTION OF PROCEDURE: After informed consent, she was taken to fluoroscopic suite. She was placed prone and skin was prepped with ChloraPrep. Skin was anesthetized on the right first over the L3-L4 and then the L5-S1 neural foramen. Using triplanar fluoroscopic views, I advanced needles into each of these neural foramen. A 0.25 mL of Omnipaque was injected through each needle and good spread of dye was seen into the foramen and into the epidural space at each level. There was clearly more tight spread of dye noted at the L5-S1 level done in the upper level. I continued on with 2.5 mL of 0.5% lidocaine mixed with 40 mg of triamcinolone through each needle. She tolerated the procedure well and there were no complications. She was observed in recovery room and discharged with a modest reduction in pain. The medication followup planned in 1 month. By: [id number] Daren Garcia MD /nt
[2019-07-02 11:16] VITALS: BP 171/108
--- NOTE | 2019-07-02 11:23 | NUR ---
Pain Clinic Assessment: 1. History of Osteoarthritis: Left Lower Extremity Right Lower Extremity History of Rheumatoid Arthritis: Not Applicable 2. Height: 5 ft. 6 in. 167.6 cm. Weight: 111.8 lb. oz. 50.712 kg. Patient's BMI: 18.1 3. Vital Signs: BP: 171/108 Pulse: 75 Resp: 16 Temp: 02 Sat: 100 ECG Mon: 4. Pain Intensity: 10 5. Fall Risk: Dizziness: N Needs help standing or walking: Y Fallen in the last 3 months: N Fall risk comments: 6. Patient on Blood Thinner: None 7. History of Hypertension: Y 8. Opioid Therapy greater than 6 weeks: Y Opiate Contract Signed: 10/06/18 9. Risk Assessment Tool Provided: 0-LOW RISK 10. Functional Assessment Tool: 11. Recreational Drug Use: Never Drug Type: Tobacco Use: Never Smoker Tobacco Type: Amount or Packs/day: How Many Years: Alcohol Use: Yes Frequency: Quant:
== END | disposition home or self-care (01) ==
LOC: PAIN 06:57
DX: M54.16 Radiculopathy, lumbar region (principal); M48.061 Spinal stenosis, lumbar region without neurogenic claudication; G89.29 Other chronic pain; M19.90 Unspecified osteoarthritis, unspecified site; I10 Essential (primary) hypertension; M96.1 Postlaminectomy syndrome, not elsewhere classified; F43.21 Adjustment disorder with depressed mood; Z98.890 Other specified postprocedural states; Z79.899 Other long term (current) drug therapy; Z88.0 Allergy status to penicillin; Z79.891 Long term (current) use of opiate analgesic

== ENCOUNTER → 2019-07-30 | Outpatient (CLI) | payer OTHER ==
[~2019-07-30] VITALS: Ht 167.6 cm; Wt 50.3 kg
[2019-07-30 09:41] VITALS: BP 150/82
--- NOTE | 2019-07-30 10:01 | NUR ---
Pain Clinic Assessment: 1. History of Osteoarthritis: Left Lower Extremity Right Lower Extremity History of Rheumatoid Arthritis: Not Applicable 2. Height: 5 ft. 6 in. 167.6 cm. Weight: 111.0 lb. oz. 50.349 kg. Patient's BMI: 17.9 3. Vital Signs: BP: 150/82 Pulse: 89 Resp: 18 Temp: 02 Sat: 97 ECG Mon: 4. Pain Intensity: 8-9 5. Fall Risk: Dizziness: N Needs help standing or walking: N Fallen in the last 3 months: N Fall risk comments: 6. Patient on Blood Thinner: None 7. History of Hypertension: Y 8. Opioid Therapy greater than 6 weeks: Y Opiate Contract Signed: 10/06/18 9. Risk Assessment Tool Provided: 0-LOW RISK 10. Functional Assessment Tool: 11. Recreational Drug Use: Never Drug Type: Tobacco Use: Never Smoker Tobacco Type: Amount or Packs/day: How Many Years: Alcohol Use: Yes Frequency: Quant:
== END | disposition home or self-care (01) ==
LOC: PAIN 06:56
DX: M53.3 Sacrococcygeal disorders, not elsewhere classified (principal); M96.1 Postlaminectomy syndrome, not elsewhere classified; M19.90 Unspecified osteoarthritis, unspecified site; F32.9 Major depressive disorder, single episode, unspecified; Z88.0 Allergy status to penicillin; Z79.899 Other long term (current) drug therapy

== ENCOUNTER → 2019-09-03 | Outpatient (CLI) | payer OTHER ==
[~2019-09-03] VITALS: Ht 167.6 cm; Wt 50.6 kg
[2019-09-03 10:38] VITALS: BP 170/100
--- NOTE | 2019-09-03 10:59 | NUR ---
Pain Clinic Assessment: 1. History of Osteoarthritis: Left Lower Extremity Right Lower Extremity History of Rheumatoid Arthritis: Not Applicable 2. Height: 5 ft. 6 in. 167.6 cm. Weight: 111.6 lb. oz. 50.621 kg. Patient's BMI: 18.0 3. Vital Signs: BP: 170/100 Pulse: 84 Resp: 14 Temp: 02 Sat: 100 ECG Mon: 4. Pain Intensity: 7-8 5. Fall Risk: Dizziness: N Needs help standing or walking: N Fallen in the last 3 months: N Fall risk comments: 6. Patient on Blood Thinner: None 7. History of Hypertension: Y 8. Opioid Therapy greater than 6 weeks: Y Opiate Contract Signed: 10/06/18 9. Risk Assessment Tool Provided: 0-LOW RISK 10. Functional Assessment Tool: 11. Recreational Drug Use: Never Drug Type: Tobacco Use: Never Smoker Tobacco Type: Amount or Packs/day: How Many Years: Alcohol Use: Yes Frequency: Daily Quant: 1 COCKTAIL OR GLASS OF WINE
--- NOTE | 2019-09-14 12:21 | HPC ---
[facility] [place] [address] [place] [address] PAIN MANAGEMENT CONSULTATION Name: AILYN VALDEZ Room #: REG LUKE Carlos#: [id number] Admission: 09/03/19 Attend Phys: Daren Garcia MD Discharge: Date of : 47 Report #: [id number] THIS REPORT FOR: //name// CC: Daren Patel DATE OF SERVICE: 09/03/2019 Followup visit for severe low back pain, post-laminectomy syndrome. The patient returns today reporting really nice response to her sacroiliac injection. Took away her pain almost completely for nearly a week or 2, but the pain has now returned. I do not think she is as bad as she was. She continues to undergo some physical therapy. Medications were reviewed and reconciled. She is taking tramadol at a pretty good clip. I prescribed 180 tablets for her on 08/20/2019. 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 We discussed the response to the medication and to the injection. I think she is a candidate to repeat the injections, perhaps even doing diagnostic blocks. If she gets a favorable response again, but the results are not long lasting. Two options are available. One would be radiofrequency ablation, which has shown good promise for many of my patients who has intractable sacroiliac joint pain. The second would be to consider discussing iFuse with Dr. Miller fusion of the sacroiliac joint. She is not ready to go to surgery again, so I will see how things go over the next week or so. PQRS REVIEW: Positive for arthritis of the lower extremities and back with spondylosis. BMI is 18, blood pressure 170/100, heart rate 84. She is under treatment. She has a pain score of 8/10 today, has not fallen in the last 3 months. She is on no blood thinners. She is on opioids and completed an opioid agreement with us in September. Her low risk is identified on the opioid risk tool. Functional assessment score is actually improved and is 29 an improvement over prior visits. She denies use of recreational drugs or alcohol in excess. She does enjoy cocktail or glass of wine in a social setting avoiding pain medications prior to taking alcohol. PLAN: Return for sacroiliac injection or medial branch nerve blocks in September. Continue on tramadol, which will be renewed per her agreement. Importance of safeguarding was discussed. <ELECTRONICALLY SIGNED> By: Daren Garcia MD 09/14/19 1221 1730 0012 Daren Garcia MD /nt
== END ==
LOC: PAIN 07:00
DX: M54.5 Low back pain (principal); M96.1 Postlaminectomy syndrome, not elsewhere classified

== ENCOUNTER → 2019-09-21 | Outpatient (CLI) | payer OTHER ==
[~2019-09-21] VITALS: Ht 167.6 cm; Wt 50.7 kg
[~2019-09-21] MED LIST changes: +B COMPLEX1 EACH PO; +PREDNISONE 1 MG1 M1 PO; +ZESTRIL20 MG PO
--- NOTE | ~2019-09-21 | HPC ---
[facility] [place] [employer] [place] [address] PAIN MANAGEMENT CONSULTATION Name: AILYN VALDEZ Room #: REG Naveed Gabby.#: [id number] Admission: 09/21/19 Attend Phys: Daren Garcia MD Discharge: Date of : 47 Report #: [id number] THIS REPORT FOR: //name// CC: Daren Patel DATE OF SERVICE: 09/21/2019 Followup visit for failed back syndrome, post-laminectomy syndrome with radiculopathy. The patient returns to pain clinic today reporting a pain score of 10/10, particularly at night when she is most miserable. I gave her a sacroiliac injection under fluoroscopic guidance with good relief on 07/30/2019. We talked today about doing dorsal rami blocks of the sacroiliac joint to see if we can provide some lasting pain relief and consider radiofrequency ablation. We decided against that procedure at this time. The rest of our visit was spent discussing medication. PQRS: Positive for osteoarthritis involving the lower extremities. BMI 18.1, blood pressure 179/91, heart rate 76, respirations 14, O2 sat 100, pain intensity is 100. She is not a fall risk and has not fallen in the last 3 months. She denies use of blood thinning medications. She has a history of hypertension. Medications used to treat her hypertension were reviewed, including all medications. She is on a statin. She is on Lipitor, Zestril, vitamin D, Centrum Silver, gabapentin 100 mg 1-3 tablets b.i.d., prednisolone 1 mg b.i.d., vitamin B and she has hydrocodone but takes only half tablet at bedtime, no more. She has completed an opioid risk tool and her score is 0. She has an opioid agreement on her chart from 2019. She has a functional assessment score of 29. Denies use of tobacco and enjoys alcohol on occasion, generally just 1 or 2 cocktails. I reviewed the prescription drug monitoring information. I provided her with a prescription for 60 hydrocodone 5/325 on 07/02/2019. She has not asked for an additional prescription. PHYSICAL EXAMINATION: As noted above. She has pain across her back and pain radiating into the right leg all the way through the buttock into the foot consistent with radiculopathy. Localized tenderness over the sacroiliac joint is noted and she did have a nice response to sacroiliac injection, so there may be more than [address] [address] PAIN MANAGEMENT CONSULTATION Name: AILYN VALDEZ Room #: REG [facility]#: [id number] Admission: 09/21/19 Attend Phys: Daren Garcia MD Discharge: Date of : 47 Report #: [id number] RECOMMENDATIONS: She was taking tramadol, but this is no longer effective. She has tried 1/2 of a hydrocodone 5-mg tablet and it provides pain relief enough that she can sleep at night, but she does not find that that dose is effective during the day. Gabapentin taken in a small dose 100 mg twice a day is not very helpful, but she has been reluctant also to increase the dose of that medication. RECOMMENDATION: We have talked in the past about more aggressive pain management tools, including spinal cord stimulation and intrathecal pump. She does not want to do either of those things at this time. She is leaving soon on a vacation. We spent quite a bit of time today with her discussing the pros and cons, risks and benefits of using opioids as a medication. She can take it cautiously, slowly increasing her dose. I would be comfortable with her taking a 5-mg tablet up to 3 times a day. Even at that dose, she would be at 15 morphine milligram, considered low dose in the CDC guideline. She is at low risk of addiction. She has such a difficult spinal condition that I believe we have tried everything in advance of moving to opioid for long-term management. She is anxious about this due to all the press provided regarding the risks of opioids, but nonetheless, the trial will hopefully take place in the next few weeks before she leaves on vacation. Prescription provided and an opioid agreement reviewed for safeguarding issues. By: [id number] Daren Garcia MD /nt
[2019-09-21 10:44] VITALS: BP 179/91
--- NOTE | 2019-09-21 11:00 | NUR ---
Pain Clinic Assessment: 1. History of Osteoarthritis: Left Lower Extremity Right Lower Extremity History of Rheumatoid Arthritis: DENIES 2. Height: 5 ft. 6 in. 167.6 cm. Weight: 111.8 lb. oz. 50.712 kg. Patient's BMI: 18.1 3. Vital Signs: BP: 179/91 Pulse: 76 Resp: 14 Temp: 02 Sat: 100 ECG Mon: 4. Pain Intensity: 10 5. Fall Risk: Dizziness: N Needs help standing or walking: N Fallen in the last 3 months: N Fall risk comments: 6. Patient on Blood Thinner: None 7. History of Hypertension: Y 8. Opioid Therapy greater than 6 weeks: Y Opiate Contract Signed: 10/06/18 9. Risk Assessment Tool Provided: 0-LOW RISK 10. Functional Assessment Tool: 11. Recreational Drug Use: Never Drug Type: Tobacco Use: Never Smoker Tobacco Type: Amount or Packs/day: How Many Years: Alcohol Use: Yes Frequency: Daily Quant: COCKTAIL
== END ==
LOC: PAIN 06:53
DX: M96.1 Postlaminectomy syndrome, not elsewhere classified (principal); Z88.8 Allergy status to other drugs, medicaments and biological substances; Z79.899 Other long term (current) drug therapy

== ENCOUNTER → 2019-10-05 | Outpatient (CLI) | payer OTHER ==
[~2019-10-05] VITALS: Ht 167.6 cm; Wt 51.5 kg
[~2019-10-05] MED LIST changes: +AREDS; +ENDOCET 7.5-321 EACH PO; +NEURONTIN 300M300 M2 PO
[2019-10-05 10:00] VITALS: BP 160/78
--- NOTE | 2019-10-05 10:22 | NUR ---
Pain Clinic Assessment: 1. History of Osteoarthritis: Left Lower Extremity Right Lower Extremity History of Rheumatoid Arthritis: DENIES 2. Height: 5 ft. 6 in. 167.6 cm. Weight: 113.6 lb. oz. 51.528 kg. Patient's BMI: 18.3 3. Vital Signs: BP: 160/78 Pulse: 83 Resp: 14 Temp: 02 Sat: 99 ECG Mon: 4. Pain Intensity: 12 5. Fall Risk: Dizziness: N Needs help standing or walking: N Fallen in the last 3 months: N Fall risk comments: 6. Patient on Blood Thinner: None 7. History of Hypertension: Y 8. Opioid Therapy greater than 6 weeks: Y Opiate Contract Signed: 10/06/18 9. Risk Assessment Tool Provided: 0-LOW RISK 10. Functional Assessment Tool: 11. Recreational Drug Use: Never Drug Type: Tobacco Use: Never Smoker Tobacco Type: Amount or Packs/day: How Many Years: Alcohol Use: Yes Frequency: Daily Quant: 1 glass
--- NOTE | 2019-10-06 08:48 | HPC ---
[facility] [address] [place] [address] PAIN MANAGEMENT CONSULTATION Name: AILYN VALDEZ Suzan Room #: REG [facility] Carlos#: [id number] Admission: 10/05/19 Attend Phys: Lolita Urban Discharge: Date of : 47 Report #: [id number] THIS REPORT FOR: //name// CC: Lolita Patel DATE OF SERVICE: 10/05/2019 CHIEF COMPLAINT: Failed back syndrome, post-laminectomy syndrome with radiculopathy. HISTORY OF PRESENT ILLNESS: This is a pleasant 73-year-old female who returns to the pain clinic today to discuss options for medications regarding her ongoing low back pain that radiates into her buttocks, worse today on the left side as well as right leg pain. She is reporting her pain score at 12/10 today, stating that it is a stabbing, constant, aching pain. She feels that her medications are not working as well as they had in the past. Her pain level is constant, especially when she is walking and standing for any prolonged period of time. She feels the only relief she is getting is when she stretches or walks kind of bent over. She is wondering if there are other options for medication management today and also if Dr. Garcia is willing to give her an injection to help her left-sided sciatic pain. ALLERGIES: PENICILLIN. CURRENT LIST OF MEDICATIONS: Hydrocodone 5/325 one and half tablets 3 times a day, vitamin B, prednisone, lisinopril, atorvastatin, gabapentin 100 mg in the morning and 300 at night, multivitamin, vitamin D, Os-Jose. PQRS: 1. She has osteoarthritis in her lower extremities. Denies rheumatoid arthritis. 2. Height is 5 feet 6 inches, weight is 113, BMI is 18. 3. Vital signs, 160/78, pulse is 83, respirations 14, oxygen sat is 99, pain score 12/10. 4. Fall risk. Denies dizziness. Does use a cane occasionally, has not fallen in the last 3 months. 5. The patient is not on any blood thinners, but does take medicine for hypertension. Opioid therapy is greater than 6 weeks; therefore, an opioid signed contract is on the chart. Risk assessment tool is low. Functional assessment is . 6. Recreational drug use, she denies. She is not a smoker and drinks one glass of alcohol every night. According to the prescription monitoring system, the patient filled her last [facility] [address] [place] [address] PAIN MANAGEMENT CONSULTATION Name: AILYN VALDEZ [id number] Admission: 10/05/19 Attend Phys: Lolita Urban Discharge: Date of : 47 Report #: [id number] prescription in September. According to the CDC guidelines, her morphine mEq would be 20 MME per day. PHYSICAL EXAMINATION: GENERAL: This is alert and orientated 73-year-old female who appears her stated age, placing her current pain score 12/10 today. HEENT: Normocephalic, atraumatic. Extraocular eye muscles are intact. Mucous membranes are moist. MUSCULOSKELETAL: She has pain across her lumbar spine that radiates into her right leg, to her foot, also pain and tenderness in her left sacroiliac joint. Her lower extremity strength judged to be 5/5. She has tenderness over the left SI joint. IMPRESSION: 1. Failed back syndrome. 2. Post-laminectomy syndrome with radiculopathy. 3. Severe sacroiliac joint pain and tenderness. 4. Depression. 5. Management of opioid medications. PLAN: 1. We discussed treatment options for greater than 25 minutes today. I reviewed the fact that Dr. Daren Garcia had discussed pros and cons just a few weeks ago with her medications as well as discussing spinal cord stimulator and intrathecal pump, which the patient is still not interested in either of those interventions. She is wondering about a possible left sacroiliac joint injection. I explained to her that we do have to watch the side effects of all of the steroid medications. I believe she could be a candidate for an injection in October, but we will try to rotate medications and see if that is beneficial. 2. The patient has been taking hydrocodone 1-1/2 tablets 3 times a day, but has not been sufficient in helping control her pain. I discuss this case with Dr. Daren Garcia who is agreeable to trial of oxycodone 7.5/325 taking one tablet up to 3 times a day, cautioned the patient taking this at home to see how she does react to this medication and not drive until she is making sure that it does not have any problems with side effects of this medication. The patient verbalizes understanding. I instructed her to take the lowest most effective dose. She may need only 2 tablets a day, but we are allowing her up to 3 a day. We will e-prescribe this medication for her. 3. The patient has been taking gabapentin 1 in the morning and 300 at night. We will increase this to 300 mg twice a day. I believe this may help with some of her neuropathic pain. I believe she will be able to increase this without any problems with side effects and she has been taking this medication for quite some time. 4. The patient tells me she has been supplementing her pain medicine with Advil throughout the day. We have offered her meloxicam 7.5 mg b.i.d., instructing [facility] [address] [place] [address] PAIN MANAGEMENT CONSULTATION Name: AILYN VALDEZ Room #: REG [facility] Gonzalez#: [id number] Admission: 10/05/19 Attend Phys: Lolita Urban Discharge: Date of : 47 Report #: [id number] her to take this more stomach friendly anti-inflammatory with breakfast and dinner if she is only needing 1 tablet a day, again taking the lowest most effective dose that would be beneficial as well. 5. We have written a prescription note that she is unable to complete her vacation that she had scheduled in October due to increase in pain. Hopefully, this will suffice, so she will not have to pay for this rental of the [employer]. The patient instructed to call and report how she is doing in the next 2 weeks and schedule an appointment if she feels like she still needs one for an injection. The patient is seen today in collaboration with Dr. Daren Garcia. <ELECTRONICALLY SIGNED> By: Lolita Urban 10/06/19 0848 [id number] Lolita Urban /nt
== END ==
LOC: PAIN 06:56
DX: M96.1 Postlaminectomy syndrome, not elsewhere classified (principal); M54.16 Radiculopathy, lumbar region; I10 Essential (primary) hypertension; Z79.899 Other long term (current) drug therapy; Z79.891 Long term (current) use of opiate analgesic; Z88.0 Allergy status to penicillin

== ENCOUNTER → 2019-10-22 | Outpatient (CLI) | payer OTHER ==
[~2019-10-22] VITALS: Ht 167.6 cm; Wt 48.0 kg
--- NOTE | ~2019-10-22 | HPC ---
[facility] [place] [address] PAIN MANAGEMENT CONSULTATION Name: AILYN VALDEZ Room #: REG [facility] Carlos#: [id number] Admission: 10/22/19 Attend Phys: Daren Garcia MD Discharge: Date of : 47 Report #: [id number] THIS REPORT FOR: cc: Aissatou Patel MD,Daren Cai MD, MD ~ THIS REPORT FOR: //name// CC: Brandon Patel DATE OF SERVICE: 10/22/2019 Followup visit for persistent low back pain and radiculopathy, post-laminectomy syndrome, failed back syndrome. The patient returns to pain clinic today with pain in her sacroiliac joint. Her radicular pain is still present, but she does not complain about it as much as she did when she first returned from surgery. She would like to have the same injection we provided for her. That was helpful in July. We had referred to my notes. She had a right sacroiliac joint injection, which provided complete pain relief for nearly 2 weeks ! Interestingly, the pain today is on the left, but is again low and in the sacral region. I have agreed to provide her with a trial of sacroiliac injection today under fluoroscopic guidance. She is discouraged and depressed. She has an appointment with Dr. Miller upcoming. MEDICATIONS: Tramadol is helpful. I gave her a prescription for a trial of buprenorphine 5 mg patch, but she did not use it. I encouraged her to use it once again. She is on gabapentin 300 mg twice daily, lisinopril, atorvastatin and cholecalciferol. ALLERGIES: PENICILLIN. PQRS: Positive for bilateral lower extremity arthritis, BMI of 17, blood pressure 178/87, heart rate 80, respirations 14, O2 sat 100, pain intensity 10/10. She is not a fall risk. She is on no blood thinners. She is under treatment as noted for hypertension. She is on an opioid agreement with the ORT score of 0, so she is at low risk for addiction. Despite her complaining, her functional assessment tool score is not too bad at 29. She denies recreational drug use and tobacco, but she does drink alcohol moderately in a social setting and does not drive while taking pain medication. PHYSICAL EXAMINATION: Reveals marked scoliosis. Tenderness across her scar in [facility] [address] [place] [address] PAIN MANAGEMENT CONSULTATION Name: AILYN VALDEZ Room #: REG [facility]#: [id number] Admission: 10/22/19 Attend Phys: Daren Garcai MD Discharge: Date of : 47 Report #: [id number] the back. Straight leg raising discomfort bilaterally, radiating pain into the legs. She has localized tenderness over the left sacroiliac joint. IMPRESSION: 1. Failed back syndrome with radiculopathy. 2. Sacroiliac joint pain, which previously responded nicely to injection. 3. Management of high risk medications under opioid agreement. PROCEDURE: Left sacroiliac joint injection. She was taken to fluoroscopic suite, placed prone, skin prepped with ChloraPrep. Skin anesthetized over the left sacroiliac joint. A 25-gauge needle was gently advanced into the joint and repositioned until an excellent arthrogram was obtained. I then injected 1 mL of 0.25% bupivacaine mixed with 40 mg triamcinolone. She tolerated the procedure well. There were no complications. She was discharged shortly thereafter. Followup visit planned in the pain clinic on an as needed basis for further medication. She will begin her buprenorphine trial with tramadol for breakthrough. We did discuss the opioid antagonist effects and that she may not see as much relief from her tramadol because of this. By: [id number] Daren Garcia MD /nt
[2019-10-22 13:48] VITALS: BP 178/87
--- NOTE | 2019-10-22 13:59 | NUR ---
Pain Clinic Assessment: 1. History of Osteoarthritis: Left Lower Extremity Right Lower Extremity History of Rheumatoid Arthritis: DENIES 2. Height: 5 ft. 6 in. 167.6 cm. Weight: 105.8 lb. oz. 47.990 kg. Patient's BMI: 17.1 3. Vital Signs: BP: 178/87 Pulse: 80 Resp: 14 Temp: 02 Sat: 100 ECG Mon: 4. Pain Intensity: 10 5. Fall Risk: Dizziness: N Needs help standing or walking: N Fallen in the last 3 months: N Fall risk comments: 6. Patient on Blood Thinner: None 7. History of Hypertension: Y 8. Opioid Therapy greater than 6 weeks: Y Opiate Contract Signed: 10/06/18 9. Risk Assessment Tool Provided: 0-LOW RISK 10. Functional Assessment Tool: 11. Recreational Drug Use: Never Drug Type: Tobacco Use: Never Smoker Tobacco Type: Amount or Packs/day: How Many Years: Alcohol Use: Yes Frequency: Quant:
== END | disposition home or self-care (01) ==
LOC: PAIN 07:01
DX: M53.3 Sacrococcygeal disorders, not elsewhere classified (principal); M96.1 Postlaminectomy syndrome, not elsewhere classified; M54.16 Radiculopathy, lumbar region; I10 Essential (primary) hypertension; M19.90 Unspecified osteoarthritis, unspecified site; Z98.890 Other specified postprocedural states; Z79.899 Other long term (current) drug therapy; Z88.0 Allergy status to penicillin; Z79.891 Long term (current) use of opiate analgesic

== ENCOUNTER → 2019-11-12 | Outpatient (CLI) | payer OTHER ==
[~2019-11-12] VITALS: Ht 167.6 cm; Wt 50.6 kg
[~2019-11-12] MED LIST changes: +BUTRANS1 EAC4 TOP; +BUTRANS1 EACH INTRADERM; +NEURONTIN100 MG PO
[2019-11-12 09:34] VITALS: BP 175/101
--- NOTE | 2019-11-12 09:57 | NUR ---
Pain Clinic Assessment: 1. History of Osteoarthritis: Left Lower Extremity Right Lower Extremity History of Rheumatoid Arthritis: DENIES 2. Height: 5 ft. 6 in. 167.6 cm. Weight: 111.6 lb. oz. 50.621 kg. Patient's BMI: 18.0 3. Vital Signs: BP: 175/101 Pulse: 73 Resp: 14 Temp: 02 Sat: 100 ECG Mon: 4. Pain Intensity: 10 5. Fall Risk: Dizziness: N Needs help standing or walking: N Fallen in the last 3 months: N Fall risk comments: 6. Patient on Blood Thinner: None 7. History of Hypertension: Y 8. Opioid Therapy greater than 6 weeks: Y Opiate Contract Signed: 10/06/18 9. Risk Assessment Tool Provided: 0-LOW RISK 10. Functional Assessment Tool: 11. Recreational Drug Use: Never Drug Type: Tobacco Use: Never Smoker Tobacco Type: Amount or Packs/day: How Many Years: Alcohol Use: Yes Frequency: Daily Quant: 1 glass /wine
--- NOTE | 2019-11-13 10:38 | HPC ---
[facility] [address] [address] [place] [address] PAIN MANAGEMENT CONSULTATION Name: AILYN VALDEZ [facility] [id number] Admission: 11/12/19 Attend Phys: Lolita Urban Discharge: Date of : 47 Report #: [id number] THIS REPORT FOR: cc: Aissatou Patel MD,Aissatou Urban,Lolita PAREDES ~ CC: Lolita Patel DATE OF SERVICE: 11/12/2019 CHIEF COMPLAINT: Low back pain with radiculopathy, post-laminectomy syndrome, failed back syndrome. HISTORY OF PRESENT ILLNESS: This is a 74-year-old female who returns to the pain clinic today to discuss her medications. She is reporting a pain score of 10/10 today. Though, she reports that her right side of her lumbar spine is significantly better, she is still having pain on her left that radiates into her left leg. She also reports that her new medication regime has been beneficial. She is unsure if we should increase her dose slightly or continue where she is; so she is here to discuss these issues. The patient tells me her pain is worse with walking, standing and sitting, stretching and her medication has been beneficial. She denies any problem with constipation or daytime sleepiness as a result of her new medication cocktail of Butrans patch, tramadol or oxycodone. ALLERGIES: PENICILLIN. CURRENT LIST OF MEDICATIONS: Butrans 5 mcg patch, tramadol 2 tablets a day; gabapentin 100 mg. The patient takes 200 in the morning, 100 midday, 200 at night. Prednisone, lisinopril, Lipitor, multivitamin, and Advil. PQRS: 1. She has osteoarthritis in her lower extremities. Denies any rheumatoid arthritis. 2. Height is 5 feet 6 inches, weight is 111, BMI is 18. 3. Vital signs 175/101, pulse is 73, respirations 14, oxygen sat is 100. 4. Pain score is 10/10. 5. Denies dizziness. Does not need help for walking or standing. Has not fallen in the last 3 months. 6. The patient is not on any blood thinners, but does take medicine for hypertension. 7. Opioid therapy is greater than 6 weeks; therefore, an opioid signed contract is on the chart. Risk assessment tool is low. Functional assessment is 29/70. 8. Recreational drug use, she denies. She is not a smoker and does drink one glass of wine daily. [address] [address] PAIN MANAGEMENT CONSULTATION Name: AILYN VALDEZ Room #: REG [facility]#: [id number] Admission: 11/12/19 Attend Phys: Lolita Urban Discharge: Date of : 47 Report #: [id number] According to the prescription monitoring system, the patient is filling her medications appropriately. She is not due to fill them today though she is here for discussion. According to the CDC guidelines, her morphine mEq is under 50 MME per day. PHYSICAL EXAMINATION: GENERAL: This is alert and orientated 74-year-old female who appears her stated age, placing her current pain score 10/10. HEENT: Normocephalic, atraumatic. Extraocular eye muscles are intact. MUSCULOSKELETAL: She has scoliosis. Tenderness across her lumbar spine that radiates into her bilateral legs. Straight leg raising causes discomfort bilaterally, greater on the left than the right. She has tenderness over the left sacroiliac joint today. Lower extremity strength judged to be 5/5 in all major muscle groups. The patient walks with an antalgic gait. IMPRESSION: 1. Failed back syndrome with radiculopathy. 2. Sacroiliac joint pain bilaterally, left greater than the right. 3. Management of high-risk medications under terms of written opioid agreement. PLAN: 1. We discussed treatment options with the patient today. The patient feels that her pain is finally resolving some on her right lower back radiating in her right leg. She continued with problematic on her left. She is contemplating if she should have an additional surgery to help her left-sided pain. Dr. Garcia was present for part of the discussion. We explained to her that she needs to give her surgery at least 1 year time to heal. Tincture of time does help sometimes postoperatively as the patient has seen that her right-sided pain is slowly resolving. The patient is agreeable to hold off on any surgeries presently. 2. We discussed that she is finding the Butrans 5 mcg patch beneficial. She does still have 2 weeks left of this medication. She feels that at times it is not quite strong enough, has been taking some breakthrough pain medicines, but has been having nausea in the morning and associates this with her tramadol. We came up with a plan for her medications to trial the next 2 weeks. The patient is going to take a half of Percocet 7.5 in the morning. No tramadol at noontime to see if this is helpful in controlling her pain as well as taking Advil in the afternoon for her inflammation. She will continue her Butrans patch 5 mcg. 3. If the above plan is not beneficial, then we will increase her Butrans patch to 7.5 mcg to see if she has a more continued pain relief throughout the day. If the Percocet is beneficial, we will then prescribe Percocet 5/325, so she does not have to split her medications. The patient is agreeable with this plan of care. 4. I did take the liberty of sending gabapentin 100 mg tablets; the patient takes 2 in the morning, 1 midday, 2 at night; quantity of 150 for the month with [facility] [address] [place] [address] PAIN MANAGEMENT CONSULTATION Name: AILYN VALDEZ Room #: REG [facility] Gonzalez#: [id number] Admission: 11/12/19 Attend Phys: Lolita Urban Discharge: Date of : 47 Report #: [id number] 5 refills. This was set electronically. The patient has been reporting the pharmacy only gives her 90 pills. I instructed her to verify she had 150 pills before she left the pharmacy. If not, she was to have them send a prior authorization to us. She verbalizes understanding. 5. The patient is seen in collaboration with Dr. Daren Garcia who did see the patient as well. <ELECTRONICALLY SIGNED> By: Lolita Urban 11/13/19 1038 [id number] Lolita Urban /nt
== END ==
LOC: PAIN 06:49
DX: M54.16 Radiculopathy, lumbar region (principal); M96.1 Postlaminectomy syndrome, not elsewhere classified; M53.3 Sacrococcygeal disorders, not elsewhere classified; Z88.0 Allergy status to penicillin; Z79.899 Other long term (current) drug therapy

== ENCOUNTER → 2020-01-14 | Outpatient (CLI) | payer OTHER ==
[~2020-01-14] VITALS: Ht 167.6 cm; Wt 51.7 kg
[~2020-01-14] MED LIST changes: +ULTRAM 50MG TAB50 MG PO
[2020-01-14 11:04] VITALS: BP 184/96
--- NOTE | 2020-01-14 11:17 | NUR ---
Pain Clinic Assessment: 1. History of Osteoarthritis: Left Lower Extremity Right Lower Extremity History of Rheumatoid Arthritis: DENIES 2. Height: 5 ft. 6 in. 167.6 cm. Weight: 114.0 lb. oz. 51.710 kg. Patient's BMI: 18.4 3. Vital Signs: BP: 184/96 Pulse: 70 Resp: 16 Temp: 02 Sat: 98 ECG Mon: 4. Pain Intensity: 9 5. Fall Risk: Dizziness: N Needs help standing or walking: N Fallen in the last 3 months: N Fall risk comments: 6. Patient on Blood Thinner: None 7. History of Hypertension: Y 8. Opioid Therapy greater than 6 weeks: Y Opiate Contract Signed: 10/06/18 9. Risk Assessment Tool Provided: 0-LOW RISK 10. Functional Assessment Tool: 11. Recreational Drug Use: Never Drug Type: Tobacco Use: Never Smoker Tobacco Type: Amount or Packs/day: How Many Years: Alcohol Use: Yes Frequency: Daily Quant: 1
--- NOTE | 2020-01-15 07:36 | HPC ---
[facility] [address] [place] [address] PAIN MANAGEMENT CONSULTATION Name: AILYN VALDEZ [id number] Admission: 01/14/20 Attend Phys: Lolita Urban Discharge: Date of : 47 Report #: [id number] THIS REPORT FOR: cc: Aissatou Patel MD, Stephanie F. MD Hocker,Lolita PAREDES ~ CC: Daren Garcia MD DATE OF SERVICE: 01/14/2020 CHIEF COMPLAINT: Low back pain with radiculopathy, post-laminectomy syndrome, failed back syndrome. HISTORY OF PRESENT ILLNESS: This is a 74-year-old female who returned to the Pain Clinic today for a refill of her medications. Today, she is reporting a pain score of 9/10 today. States the majority of her pain is in her lower back and left hip, left buttock. She states that it is an aching numbness that occasionally has some tingly sensations associated with it. Her pain increases with walking and standing. She feels that some days it is a constant level. The medications she believes are helpful despite her high pain score as well as stretching. Today, the patient does have some swelling in her lower extremities. She is wondering if this is associated with her Butrans patch. She believes that this has increased since she started that medication, though she did increase the gabapentin around the same time. Today, the patient is also wondering if she may have a possible injection. She reports she has had slight benefit from injections in the past, but reports that as the day progresses, her pain does increase and is wondering if that may be beneficial. ALLERGIES: PENICILLIN. CURRENT LIST OF MEDICATIONS: Butrans 7.5 mcg patch, gabapentin 500 mg daily, tramadol 100 mg 3 times a day, prednisone 1 mg daily, lisinopril, atorvastatin, multivitamin, vitamin D, and Os-Jose. PATIENT'S PQRS: 1. She has osteoarthritis in her spine and lower extremities. Denies any rheumatoid arthritis. 2. Height is 5 feet 6 inches, weight is 114, BMI is 18. 3. Vital signs: Blood pressure is 184/96, pulse is 70, respirations 16, oxygen sat is 98. 4. Pain score is 9/10. 5. Denies dizziness, does not need help walking or standing, has not fallen in the last 3 months. 6. The patient is not on any blood thinners, [place] [address] PAIN MANAGEMENT CONSULTATION Name: AILYN VALDEZ Room #: REG [facility]#: [id number] Admission: 01/14/20 Attend Phys: Lolita Urban Discharge: Date of : 47 Report #: [id number] hypertension. Her opioid therapy is greater than 6 weeks; therefore, an opioid signed contract is on the chart. Risk assessment tool is low. Functional assessment is . 7. Recreational drug use, she denies. She is not a smoker and occasionally drinks alcohol. According to the prescription monitoring system, the patient is filling appropriately. She is due to fill her Butrans patch today. We will check a random drug screen on her at her next opioid visit. PHYSICAL EXAMINATION: GENERAL: This is an alert and orientated 74-year-old female who appears her stated age, placing her current pain score at 9/10 today. HEENT: Normocephalic, atraumatic. Extraocular eye muscles are intact. MUSCULOSKELETAL: She has scoliosis with tenderness in her lumbar spine, radiates into her bilateral legs. She has tenderness over her left sacroiliac joint and more intense pain over her piriformis muscle presently today. Rotation of her hip does not increase pain. Lower extremity strength judged to be 5/5 in all major muscle groups. She does have 2+ edema in her left lower extremity and 1+ edema in her right lower extremity. The patient also has swelling in her right fingers and wrist from a recent carpal tunnel surgery. The patient does walk with an antalgic gait. IMPRESSION: 1. Failed back syndrome with radiculopathy. 2. Sacroiliac joint pain on the left. 3. Management of high risk medications under terms of written opioid agreement. We reviewed the fact that opiate medications are being used to provide analgesia adequate to support activities of daily living, not attempting to achieve a specific pain score on the 0-10 Visual Analog Scale. The current opiate medications are providing sufficient analgesia to allow the patient to participate in activities of daily living. The patient is not exhibiting any aberrant behavior suggestive of drug diversion. The patient is not having any adverse reactions to medications. The patient is not suffering from daytime somnolence or mental acuity changes. The patient is managing opiate-induced constipation with appropriate [id number]-stuwpxi agents and dietary considerations. The patient was counseled on concern for caution with operating a motor vehicle while using opiate medications. A physical exam was performed and the patient's functional status was evaluated. All patients with back pain were advised against the bed rest greater than 4 days and were advised to return to normal activities. Pain score assessment was noted and the treatment plan was reviewed with the patient. All current medications, both prescribed and OTC were reviewed and reconciled on the electronic medical record. Tobacco screening was accomplished and smoking [address] [address] PAIN MANAGEMENT CONSULTATION Name: AILYN VALDEZ Room #: REG [facility]#: [id number] Admission: 01/14/20 Attend Phys: Lolita REGGIE Wilmar Discharge: Date of : 46 Report #: [id number] cessation was advised when indicated. BMI was noted and diet/exercise modification was recommended for all patients following outside normal parameters. I reviewed with the patient today their responsibilities to safeguard prescription medications, reviewed their responsibility to utilize medications only as prescribed by the physician. They are to seek and receive pain medications only from 1 physician group ( [facility]). They are to use 1 pharmacy and keep the clinic informed if they change pharmacies. Their responsibilities include making followup visits in a timely fashion and to avoid abrupt discontinuation of medication usage. Their responsibilities further include bringing their medications (bottles from the pharmacy with residual pills) to the visit for possible confirmation of pill counts and the patient understands it is their responsibility to submit to random drug screens to ensure both that the medications prescribed are present, and that no other controlled substances are present. All prescriptions provided today were generated electronically. PLAN: 1. We discussed treatment options with the patient today. The patient believes that the Butrans patch may be causing her to retain fluid. She is having increased edema in her lower extremities. We did discuss that she increased her gabapentin at the same time she increased her Butrans patch, gabapentin has been known to have side effects of fluid retention. I encouraged her to try to decrease her gabapentin dose to see if the fluid retention resolves. The patient will try this for the next few weeks. If it is not resolved, we may consider decreasing her Butrans patch to see if that is the culprit, but I believe it to be the gabapentin, the patient will call with a report. 2. We will continue her on her Butrans 7.5 mcg patch #4 with 2 additional refills, they will be sent electronically. If she does find that we need to decrease the dose, we will void the refills and call in 5 mcg patch. 3. We will refill her tramadol 50 mg tablets, patient takes it 3 times a day, #90 sent to the pharmacy. 4. We discussed a possible sacroiliac joint injection on her left or possibly piriformis since she is having tenderness outside the sacroiliac joint region. I have taken the liberty of making an appointment later this month for a possible injection with Dr. Daren Garcia. He will examine her further at that time and determine which injection will most be beneficial for her. 5. The patient is seen today in collaboration with Dr. Daren Garcia. He did see her as well today. <ELECTRONICALLY SIGNED> By: Lolita Urban 01/15/20 [id number] Lolita Urban /nt
== END ==
LOC: PAIN 07:22
DX: M54.16 Radiculopathy, lumbar region (principal); M96.1 Postlaminectomy syndrome, not elsewhere classified; M53.3 Sacrococcygeal disorders, not elsewhere classified; F11.20 Opioid dependence, uncomplicated; Z88.0 Allergy status to penicillin; Z79.899 Other long term (current) drug therapy

== ENCOUNTER → 2020-02-18 | Outpatient (CLI) | payer OTHER ==
[~2020-02-18] VITALS: Ht 167.6 cm; Wt 50.4 kg
[~2020-02-18] MED LIST changes: +CARVEDILOL3.125 MG PO; +ELIQUIS5 MG PO
[2020-02-18 12:28] VITALS: BP 180/77
--- NOTE | 2020-02-18 12:38 | NUR ---
Pain Clinic Assessment: 1. History of Osteoarthritis: Left Lower Extremity Right Lower Extremity History of Rheumatoid Arthritis: DENIES 2. Height: 5 ft. 6 in. 167.6 cm. Weight: 111.2 lb. oz. 50.440 kg. Patient's BMI: 18.0 3. Vital Signs: BP: 180/77 Pulse: 67 Resp: 14 Temp: 02 Sat: 100 ECG Mon: 4. Pain Intensity: 3 5. Fall Risk: Dizziness: N Needs help standing or walking: N Fallen in the last 3 months: N Fall risk comments: 6. Patient on Blood Thinner: None 7. History of Hypertension: Y 8. Opioid Therapy greater than 6 weeks: Y Opiate Contract Signed: 10/06/18 9. Risk Assessment Tool Provided: 0-LOW RISK 10. Functional Assessment Tool: 11. Recreational Drug Use: Never Drug Type: Tobacco Use: Never Smoker Tobacco Type: Amount or Packs/day: How Many Years: Alcohol Use: Yes Frequency: Quant:
--- NOTE | 2020-02-18 16:38 | HPC ---
[facility] [place] [address] PAIN MANAGEMENT CONSULTATION Name: AILYN VALDEZ Room #: REG [facility] Carlos#: [id number] Admission: 02/18/20 Attend Phys: Lolita Urban Discharge: Date of : 47 Report #: [id number] THIS REPORT FOR: cc: Aissatou Patel MD, Stephanie F. MD Hocker,Lolita PAREDES ~ CC: Daren Garcia MD DATE OF SERVICE: 02/18/2020 CHIEF COMPLAINT: Low back pain with radiculopathy, post-laminectomy syndrome, failed back syndrome. HISTORY OF PRESENT ILLNESS: This is a pleasant 74-year-old female who returned to the pain clinic today for refill of her medications. Today, she is reporting a pain score 3/10. She believes that the Butrans patch has been very beneficial in helping control her pain that she experiences in her low back and legs as well as her left hip. Today, she is complaining of aching, numbness, occasionally tingly. Her pain is increased with walking, standing and sitting. She reports that she continues her 3 tramadol a day along with her patch, but she has been able to decrease her gabapentin and has not needing a refill of that medication today. The patient reports about a month ago, she was having some irregular heartbeats and felt that she was having some heart issues. She did see her physician and was diagnosed with atrial fibrillation. She is now currently on Eliquis as well as carvedilol. She is hopeful to have an injection sometime later this year when she is able to go off her Eliquis even for a short period of time. The patient also reports she recently had her veins injected for varicosities. She is wearing LOUANN hose bilaterally. She is scheduled to have her right leg injected tomorrow. She feels that this has been beneficial in decreasing some of her swelling that she does have in her lower extremities. ALLERGIES: PENICILLIN. CURRENT LIST OF MEDICATIONS: Carvedilol 3.125, Eliquis, tramadol 50 mg t.i.d. Butrans patch 7.5 mg daily, gabapentin p.r.n., prednisone 1 mg, lisinopril, Lipitor, Centrum Silver, vitamin D, and Os-Jose. PATIENT'S PQRS: 1. She has arthritic changes in her spine and lower extremities and hands. Denies any rheumatoid arthritis. 2. Height is 5 feet 6 inches, weight is 111, BMI is 18. 3. Vital signs 180/77, pulse is 67, respirations 14, oxygen sat is 100. 4. Pain score is 3/10[place] [address] PAIN MANAGEMENT CONSULTATION Name: JOSÉ MIGUELAILYN Suzan Room #: REG [facility] Gonzalez#: [id number] Admission: 02/18/20 Attend Phys: Lolita Urban Discharge: Date of : 47 Report #: [id number] 5. Denies dizziness, does not need help walking, has not fallen in the last 3 months. She is on a blood thinner Eliquis, as well as medicines for hypertension. 6. Opioid therapy is greater than 6 weeks. Therefore, an opioid signed contract is on the chart. Risk assessment tool is low. Functional assessment is 29/70. 7. Recreational drug use, she denies. She is not a smoker and occasionally drinks alcohol. According to the prescription monitoring system, the patient is due to fill her medicines in about 3 weeks. She is filling them in a timely fashion. According to the CDC guidelines, her morphine mEq is under 20 MME per day. PHYSICAL EXAMINATION: GENERAL: This is alert and orientated, very pleasant 74-year-old who is well-developed, well-nourished, rating her pain score today at 3/10. HEENT: Normocephalic, atraumatic. Extraocular eye muscles are intact. She is wearing a mask. MUSCULOSKELETAL: She has scoliosis of her lumbar spine. She has tenderness in her lower back that radiates into her left sacroiliac joint, does radiate into her lower extremities as well. She has an antalgic gait. Her lower extremity strength judged to be 5/5 in all major muscle groups. She has 1+ edema in her lower extremities. She is wearing LOUANN hose bilaterally today. IMPRESSION: 1. Failed back syndrome with lumbar radiculopathy. 2. Sacral joint pain. 3. Atrial fibrillation, recently diagnosed on anticoagulation therapy. 4. Management of high risk medications under terms of written opioid agreement. We reviewed the fact that opiate medications are being used to provide analgesia adequate to support activities of daily living, not attempting to achieve a specific pain score on the 0-10 Visual Analog Scale. The current opiate medications are providing sufficient analgesia to allow the patient to participate in activities of daily living. The patient is not exhibiting any aberrant behavior suggestive of drug diversion. The patient is not having any adverse reactions to medications. The patient is not suffering from daytime somnolence or mental acuity changes. The patient is managing opiate-induced constipation with appropriate wotq-bao-hkxjeme agents and dietary considerations. The patient was counseled on concern for caution with operating a motor vehicle while using opiate medications. PLAN: 1. We discussed treatment options with the patient today. The patient finds her medications very beneficial in reducing some of her pain. We will refill her Butrans patch 7.5 #4 with one additional refill, as well as tramadol 50 mg [facility] [address] [place] [address] PAIN MANAGEMENT CONSULTATION Name: AILYN VALDEZ Room #: REG [facility] Carlos#: [id number] Admission: 02/18/20 Attend Phys: Lolita Urban Discharge: Date of : 47 Report #: [id number] #90 with one additional refill. These will be sent electronically by Dr. Daren Garcia. 2. We did discuss the patient is not needing her gabapentin on a regular basis. I did explain that she may take it on an as needed basis, but she may have noticed increase in side effects as well as drowsiness and slightly dizziness, so for the patient to be aware of that. 3. The patient denies any problems with constipation as a result of her opioid medications. 4. The patient is seen in collaboration with Dr. Daren Garcia. The patient will call for an appointment as needed for medications or if she is able to go off her Eliquis and have an injection. <ELECTRONICALLY SIGNED> By: Lolita Urban 02/18/20 [id number] [id number] Lolita Urban /nt
== END ==
LOC: PAIN 06:57
DX: I48.91 Unspecified atrial fibrillation (principal); Z79.891 Long term (current) use of opiate analgesic; Z79.899 Other long term (current) drug therapy; T36.0X5A Adverse effect of penicillins, initial encounter

== ENCOUNTER → 2020-05-02 | Outpatient (CLI) | payer OTHER ==
[~2020-05-02] VITALS: Ht 167.6 cm; Wt 49.7 kg
[2020-05-02 10:38] VITALS: BP 135/80
--- NOTE | 2020-05-02 10:38 | NUR ---
Pain Clinic Assessment: 1. History of Osteoarthritis: Left Lower Extremity Right Lower Extremity HANDS History of Rheumatoid Arthritis: DENIES 2. Height: ft. in. cm. Weight: lb. oz. kg. Patient's BMI: 3. Vital Signs: BP: Pulse: Resp: Temp: 02 Sat: ECG Mon: 4. Pain Intensity: 0 AT REST; UP TO 8 5. Fall Risk: Dizziness: N Needs help standing or walking: N Fallen in the last 3 months: N Fall risk comments: 6. Patient on Blood Thinner: KATHLEEN 7. History of Hypertension: Y 8. Opioid Therapy greater than 6 weeks: Y Opiate Contract Signed: 10/06/18 9. Risk Assessment Tool Provided: 0-LOW RISK 10. Functional Assessment Tool: 11. Recreational Drug Use: Never Drug Type: Tobacco Use: Never Smoker Tobacco Type: Amount or Packs/day: How Many Years: Alcohol Use: Yes Frequency: Quant:
--- NOTE | 2020-05-02 10:49 | NUR ---
Pain Clinic Assessment: 1. History of Osteoarthritis: Left Lower Extremity Right Lower Extremity HANDS History of Rheumatoid Arthritis: DENIES 2. Height: 5 ft. 6 in. 167.6 cm. Weight: 109.6 lb. oz. 49.714 kg. Patient's BMI: 17.7 3. Vital Signs: BP: 135/80 Pulse: 62 Resp: 20 Temp: 02 Sat: 98 ECG Mon: 4. Pain Intensity: 0 AT REST; UP TO 8 5. Fall Risk: Dizziness: N Needs help standing or walking: N Fallen in the last 3 months: N Fall risk comments: 6. Patient on Blood Thinner: KATHLEEN 7. History of Hypertension: Y 8. Opioid Therapy greater than 6 weeks: Y Opiate Contract Signed: 10/06/18 9. Risk Assessment Tool Provided: 0-LOW RISK 10. Functional Assessment Tool: 11. Recreational Drug Use: Never Drug Type: Tobacco Use: Never Smoker Tobacco Type: Amount or Packs/day: How Many Years: Alcohol Use: Yes Frequency: Quant:
--- NOTE | 2020-05-02 12:16 | HPC ---
[facility] [address] [place] [address] PAIN MANAGEMENT CONSULTATION Name: AILYN VALDEZ Room #: REG [facility]#: [id number] Admission: 05/02/20 Attend Phys: Lolita Urban Discharge: Date of : 47 Report #: [id number] THIS REPORT FOR: cc: HUMBERTO SOLIS Physician not on staff Lolita Urban ~ CC: Daren Garcia MD DATE OF SERVICE: 05/02/2020 CHIEF COMPLAINT: Low back pain with radiculopathy, post-laminectomy syndrome. HISTORY OF PRESENT ILLNESS: This is a 74-year-old female who returns to the pain clinic today to discuss her opioid medications. She believes most of the time, her pain is well controlled with her Butrans patch and tramadol, though some days she has been having increasing low back pain. She is wondering if she may increase her tramadol slightly to help on these more painful days. The patient reports zero pain in her lower back when she is resting, but it can be as high as 8/10 when she is active. She reports most of her pain is in her low back and hips. She does have ongoing arthritic pain in her hands as well as her feet. She denies problems with daytime somnolence or constipation as a result of her opioid medications. ALLERGIES: PENICILLIN. CURRENT LIST OF MEDICATIONS: Tramadol 50 mg t.i.d., Butrans 7.5 mg daily, carvedilol, Eliquis, gabapentin, prednisone 1 mg, lisinopril, atorvastatin, multivitamin, vitamin D, and Os-Jose. PQRS: 1. She has osteoarthritis in her upper and lower extremities and hands and also was treated for lupus. 2. Height is 5 feet 6 inches, weight is 109, BMI is 17. 3. Vital signs 135/80, pulse is 62, respirations 20, oxygen sat is 98. 4. Pain is of 0-8/10. 5. Fall risk. Denies dizziness, does not need help walking or standing, has not fallen in the last 3 months. 6. The patient is on Eliquis as well as medicines for hypertension. 7. Opioid therapy is greater than 6 weeks; therefore, an opioid signed contract is on the chart. Risk assessment is low. Functional assessment is 29/70. 8. Recreational drug use, she denies. She is not a smoker and occasionally drinks alcohol. According to the prescription monitoring system, the patient is filling appropriately in a timely fashion. Her morphine milliequivalent according to the CDC guidelines is 109. [address] [address] PAIN MANAGEMENT CONSULTATION Name: AILYN VALDEZ Room #: REG [facility] Carlos#: [id number] Admission: 05/02/20 Attend Phys: Lolita Urban Discharge: Date of : 47 Report #: [id number] PHYSICAL EXAMINATION: GENERAL: This is an alert and orientated 74-year-old female who appears her stated age, placing her current pain score from 0-8 today. She is well-developed, well-nourished, slightly anorexic very thin female. HEENT: Normocephalic, atraumatic. Extraocular eye muscles are intact. She is wearing a mask today. MUSCULOSKELETAL: She has scoliosis of her lumbar spine tenderness over her lumbosacral region into her bilateral hips. She is wearing LOUANN hose bilaterally today. Complains of right hand pain in multiple joints that are arthritic. She has an antalgic gait. Her lower extremity strength judged to be 5/5 in all major muscle groups. IMPRESSION: 1. Failed back syndrome, post-laminectomy syndrome. 2. Lumbar radiculopathy. 3. Sacroiliac joint pain. 4. Atrial fibrillation, on anticoagulation therapy. 5. Management of high risk medications under terms of written agreement. We reviewed the fact that opiate medications are being used to provide analgesia adequate to support activities of daily living, not attempting to achieve a specific pain score on the 0-10 Visual Analog Scale. The current opiate medications are providing sufficient analgesia to allow the patient to participate in activities of daily living. The patient is not exhibiting any aberrant behavior suggestive of drug diversion. The patient is not having any adverse reactions to medications. The patient is not suffering from daytime somnolence or mental acuity changes. The patient is managing opiate-induced constipation with appropriate ybui-eqp-ovbcpwo agents and dietary considerations. The patient was counseled on concern for caution with operating a motor vehicle while using opiate medications. A physical exam was performed and the patient's functional status was evaluated. All patients with back pain were advised against the bed rest greater than 4 days and were advised to return to normal activities. Pain score assessment was noted and the treatment plan was reviewed with the patient. All current medications, both prescribed and OTC were reviewed and reconciled on the electronic medical record. Tobacco screening was accomplished and smoking cessation was advised when indicated. BMI was noted and diet/exercise modification was recommended for all patients following outside normal parameters. I reviewed with the patient today their responsibilities to safeguard prescription medications, reviewed their responsibility to utilize medications only as prescribed by the physician. They are to seek and receive pain medications only from 1 physician group ([facility]). They are to use [address] [address] PAIN MANAGEMENT CONSULTATION Name: AILYN VALDEZ Room #: [facility]#: [id number] Admission: 05/02/20 Attend Phys: Lolita Urban Discharge: Date of : 47 Report #: [id number] pharmacy and keep the clinic informed if they change pharmacies. Their responsibilities include making followup visits in a timely fashion and to avoid abrupt discontinuation of medication usage. Their responsibilities further include bringing their medications (bottles from the pharmacy with residual pills) to the visit for possible confirmation of pill counts and the patient understands it is their responsibility to submit to random drug screens to ensure both that the medications prescribed are present, and that no other controlled substances are present. All prescriptions provided today were generated electronically. PLAN: 1. We discussed treatment options with the patient today. The patient feels that at times, her pain is well controlled on her current regimen, but other times she does have increasing pain. I did discuss an increase with Dr. Daren Garcia who is agreeable to increasing her tramadol by 1 tablet per day. He will send scripts electronically for her Butrans 7.5 mcg patch #4 with 1 refill and tramadol 50 mg q.i.d., #120 with one additional refill. This does raise her morphine milliequivalent slightly above 110. We do monitor her closely every 2 months. 2. We did discuss what the patient has had injections in her wrist, that have been very beneficial, but currently she is on Eliquis for a recent atrial fibrillation. She is hopeful to go off this medication when she sees her scaffold setter on Saturday and then hopefully she will have another injection in her hands decreasing some of that pain. 3. We did discuss briefly Voltaren gel to her arthritic joints. She may find this beneficial and be able to take with her Eliquis. 4. The patient is not needing gabapentin refilled today. She has recently restarted her gabapentin 200 mg in the morning and at bedtime for neuropathy symptoms that have recurred in her feet. 5. The patient will return in 2 months. At that time, we will collect a random drug screen. The patient is seen today in collaboration with Dr. Daren Garcia. <ELECTRONICALLY SIGNED> By: Lolita Urban 05/02/20 1216 [id number] Lolita Urban /nt
== END ==
LOC: PAIN 07:02
PROVIDERS: ATTEND Clinical Nurse Specialist Adult Health
DX: M96.1 Postlaminectomy syndrome, not elsewhere classified (principal); M54.16 Radiculopathy, lumbar region; I48.91 Unspecified atrial fibrillation; Z79.01 Long term (current) use of anticoagulants; Z88.0 Allergy status to penicillin; Z79.891 Long term (current) use of opiate analgesic; Z79.899 Other long term (current) drug therapy

== ENCOUNTER → 2020-05-30 | Outpatient (CLI) | payer OTHER ==
[~2020-05-30] VITALS: Ht 167.6 cm; Wt 50.3 kg
--- NOTE | ~2020-05-30 | HPC ---
[facility] [place] [address] [place] [address] PAIN MANAGEMENT CONSULTATION Name: AILYN VALDEZ Room #: REG [facility] Pierre.#: [id number] Admission: 05/30/20 Attend Phys: Daren Garcia MD Discharge: Date of : 47 Report #: [id number] THIS REPORT FOR: cc: HUMBERTO SOLIS Physician not on staff Daren Garcia MD ~ CC: HUMBERTO SOLIS Physician staff Daren Garcia DATE OF SERVICE: 05/30/2020 Followup visit for chronic pain due to severe kyphoscoliosis of the lumbar spine and sacroiliac joint pain. The patient is here today for sacroiliac injections. We provide medication for her under terms of written opioid agreement. She is doing well on a combination of buprenorphine and tramadol. This is a bit of an unusual recipe. Buprenorphine as a baseline medicine is well tolerated and she sees improvement with a 7.5 mcg patch. She takes tramadol 2 tablets in the morning to start her day, one tablet later in the day and another in the afternoon. She completely denies side effects of any sort other than some occasional constipation, which we discussed in the past. With the medication, she is able to control her pain somewhat. She is not a surgical candidate. Injections have only provided modest relief. She carefully safeguards her medicines and we follow her prescriptions on the prescription drug monitoring program out of the [facility]. There is an MME of 17 noted and there are no unexpected entries. I am their only provider. She gets all her prescriptions at one pharmacy, [facility] in [place]. She has an opioid agreement on her chart and we performed urine drug screens at my discretion. In addition to the medicines, which provided partial relief, she has tenderness over the sacroiliac joints, which is fairly discrete and has responded favorably in the past to injections, she would like to repeat the injections today if we could. PQRS is positive for osteoarthritis in nearly every joint in her body. She has terrible spondylosis and scoliosis. Her back is her biggest problem. The sacroiliac joints are close behind. Her BMI is 17.9. Her blood pressure 182/97, pulse 64, respirations 14, O2 sat 100, pain intensity 9/10 today. She denies dizziness, falls and she has not fallen in the last 3 months. She discontinued her Eliquis in anticipation of the injections 5 days ago. She has a history of hypertension. She has atrial fibrillation. She is on an opioid agreement at low risk for addiction with an ORT score of 0. Functional assessment score is 43, modest interference of day-to-day activities. She does not smoke, but enjoys alcohol carefully and does not mix her medicines. [facility] [address] [place] [address] PAIN MANAGEMENT CONSULTATION Name: JOSÉ MIGUELAILYN A Room #: REG [facility] Gonzalez#: [id number] Admission: 05/30/20 Attend Phys: Daren Garcia MD Discharge: Date of : 47 Report #: [id number] IMPRESSION: 1. Chronic intractable low back pain with radiculopathy, post-laminectomy. 2. Severe scoliosis. 3. Sacroiliitis with prior response to sacroiliac injections. 4. Atrial fibrillation, on coagulation therapy, which has been held in anticipation of injections. 5. Management of high risk medications. I will renew her Butrans and tramadol today. Medications were sent electronically. PROCEDURE: Bilateral sacroiliac injections, fluoroscopic guidance. After informed consent, she was taken to fluoroscopic suite. She was placed prone, skin was prepped with ChloraPrep. Skin anesthetized first on the left. A 22-gauge needle was advanced in the posterior inferior capsule and a nice arthrogram obtained with small amount of Omnipaque. I then injected 1 mL of 0.5% lidocaine mixed with 20 mg of triamcinolone. She tolerated the procedure well. She was allowed to reposition and the C-arm was moved to the right. We performed the same injection on the right side. Skin anesthetized once again with 1% lidocaine and 22-gauge needle advanced into the joint capsule. It was repositioned until an arthrogram obtained with a small amount of Omnipaque and then I injected another 1 mL of 0.5% lidocaine mixed with another 20 mg of triamcinolone. She tolerated the procedures well and was observed for a short time, pain was reduced by about 40-50% at discharge. Followup visit planned for medication in 1-2 months. By: 1700 [id number] Daren Garcia MD /nt
[2020-05-30 14:49] VITALS: BP 182/97
--- NOTE | 2020-05-30 15:04 | NUR ---
Pain Clinic Assessment: 1. History of Osteoarthritis: Left Lower Extremity Right Lower Extremity HANDS History of Rheumatoid Arthritis: DENIES 2. Height: 5 ft. 6 in. 167.6 cm. Weight: 111.0 lb. oz. 50.349 kg. Patient's BMI: 17.9 3. Vital Signs: BP: 182/97 Pulse: 64 Resp: 14 Temp: 02 Sat: 100 ECG Mon: 4. Pain Intensity: 9 5. Fall Risk: Dizziness: N Needs help standing or walking: N Fallen in the last 3 months: N Fall risk comments: 6. Patient on Blood Thinner: KATHLEEN 7. History of Hypertension: Y 8. Opioid Therapy greater than 6 weeks: Y Opiate Contract Signed: 10/06/18 9. Risk Assessment Tool Provided: 0-LOW RISK 10. Functional Assessment Tool: 11. Recreational Drug Use: Never Drug Type: Tobacco Use: Never Smoker Tobacco Type: Amount or Packs/day: How Many Years: Alcohol Use: Yes Frequency: Quant:
== END | disposition home or self-care (01) ==
LOC: PAIN 07:03
PROVIDERS: ATTEND Anesthesiology Pain Medicine
DX: M53.3 Sacrococcygeal disorders, not elsewhere classified (principal); G89.29 Other chronic pain; M41.86 Other forms of scoliosis, lumbar region; I10 Essential (primary) hypertension; I48.91 Unspecified atrial fibrillation; M19.90 Unspecified osteoarthritis, unspecified site; Z98.890 Other specified postprocedural states; Z79.899 Other long term (current) drug therapy; Z79.891 Long term (current) use of opiate analgesic; Z79.01 Long term (current) use of anticoagulants; Z88.0 Allergy status to penicillin

== ENCOUNTER → 2020-08-01 | Outpatient (CLI) | payer OTHER ==
[~2020-08-01] VITALS: Ht 167.6 cm; Wt 50.0 kg
[2020-08-01 12:49] VITALS: BP 164/95
--- NOTE | 2020-08-01 13:04 | NUR ---
Pain Clinic Assessment: 1. History of Osteoarthritis: Left Lower Extremity Right Lower Extremity HANDS History of Rheumatoid Arthritis: DENIES 2. Height: 5 ft. 6 in. 167.6 cm. Weight: 110.2 lb. oz. 49.986 kg. Patient's BMI: 17.8 3. Vital Signs: BP: 164/95 Pulse: 67 Resp: 14 Temp: 02 Sat: 100 ECG Mon: 4. Pain Intensity: 7-8 5. Fall Risk: Dizziness: N Needs help standing or walking: N Fallen in the last 3 months: N Fall risk comments: 6. Patient on Blood Thinner: KATHLEEN 7. History of Hypertension: Y 8. Opioid Therapy greater than 6 weeks: Y Opiate Contract Signed: 10/06/18 9. Risk Assessment Tool Provided: 0-LOW RISK 10. Functional Assessment Tool: 11. Recreational Drug Use: Never Drug Type: Tobacco Use: Never Smoker Tobacco Type: Amount or Packs/day: How Many Years: Alcohol Use: Yes Frequency: Daily Quant: 1 GLASS WINE/DAY
== END | disposition home or self-care (01) ==
LOC: PAIN 06:57
PROVIDERS: ATTEND Anesthesiology Pain Medicine
DX: M53.3 Sacrococcygeal disorders, not elsewhere classified (principal); G89.29 Other chronic pain; I10 Essential (primary) hypertension; Z79.01 Long term (current) use of anticoagulants; Z98.890 Other specified postprocedural states; Z79.899 Other long term (current) drug therapy; Z88.0 Allergy status to penicillin

== ENCOUNTER → 2020-09-01 | Outpatient (CLI) | payer OTHER ==
[~2020-09-01] VITALS: Ht 167.6 cm; Wt 49.4 kg
[~2020-09-01] MED LIST changes: +FLECTOR1 EACH TOP
[2020-09-01 10:29] VITALS: BP 138/102
--- NOTE | 2020-09-01 10:37 | NUR ---
Pain Clinic Assessment: 1. History of Osteoarthritis: Left Lower Extremity Right Lower Extremity HANDS History of Rheumatoid Arthritis: DENIES 2. Height: 5 ft. 6 in. 167.6 cm. Weight: 108.8 lb. oz. 49.351 kg. Patient's BMI: 17.6 3. Vital Signs: BP: 138/102 Pulse: 68 Resp: 18 Temp: 02 Sat: 99 ECG Mon: 4. Pain Intensity: 7-8 5. Fall Risk: Dizziness: N Needs help standing or walking: N Fallen in the last 3 months: N Fall risk comments: 6. Patient on Blood Thinner: KATHLEEN 7. History of Hypertension: Y 8. Opioid Therapy greater than 6 weeks: Y Opiate Contract Signed: 10/06/18 9. Risk Assessment Tool Provided: 0-LOW RISK 10. Functional Assessment Tool: 11. Recreational Drug Use: Never Drug Type: Tobacco Use: Never Smoker Tobacco Type: Amount or Packs/day: How Many Years: Alcohol Use: Yes Frequency: Quant:
--- NOTE | 2020-09-02 07:37 | HPC ---
[facility] [address] [place] [address] PAIN MANAGEMENT CONSULTATION Name: AILYN VALDEZ Room #: REG [facility]#: [id number] Admission: 09/01/20 Attend Phys: Lolita Urban Discharge: Date of : 47 Report #: [id number] THIS REPORT FOR: cc: HUMBERTO SOLIS Physician not on staff Lolita Urban DATE OF SERVICE: 09/01/2020 CHIEF COMPLAINT: Bilateral sacral joint pain and kyphoscoliosis of the lumbar spine. HISTORY OF PRESENT ILLNESS: This is a pleasant 74-year-old female who returns to the pain clinic to discuss her opioid medications. Today, she is reporting a pain score of 7-8/10. She believes that the Butrans patch is not as effective as it was in the past. She believes that she is having end of dose failure after 5-6 days of wearing the patch. She is wondering if she may return to tramadol 50 mg tablets taking 3 times a day at 2 tablets each time. She believes that was more beneficial in controlling her pain. The patient also reports today that the bilateral sacroiliac joint injection by Dr. Garcia performed on her a month ago was not beneficial. In fact, she reports her nerve pain has increased since that time, so she has increased her gabapentin utilizing this 300 mg b.i.d. The patient reports most significant pain is in her sacroiliac joints that do radiate into her lower right leg as well as ongoing pain in her low back that is described as a stabbing, shooting pain, worse with any prolonged standing and sitting. She has been having difficulty sleeping at night. ALLERGIES: PENICILLIN. CURRENT LIST OF MEDICATIONS: Tramadol 50 mg q.i.d. Butrans patch 7.5 mcg daily, gabapentin 300 mg b.i.d., carvedilol, Eliquis, prednisone, Zestril, calcium, vitamin D. PQRS: 1. She has osteoarthritis in her lower extremities as well as her hands. Denies any rheumatoid arthritis. 2. Height is 5 feet 6 inches, weight is 108, BMI is 17. Vital signs 138/102, pulse is 68, respirations 18, oxygen sat is 99%. 3. Pain score is 7 to 8. 4. Denies dizziness, does not need assistance with ambulation. Has not fallen in the last 3 months. 5. The patient is on Eliquis as well as medicines for hypertension. 6. Opioid therapy is greater than 6 weeks; therefore, an opioid signed contract is on the chart. Risk assessment is low. Functional assessment is 30/70. 7. Recreational drug use, she denies. She is not a smoker [place] [address] PAIN MANAGEMENT CONSULTATION Name: AILYN VALDEZ Room #: REG [facility] Gonzalez#: [id number] Admission: 09/01/20 Attend Phys: Lolita Urban Discharge: Date of : 47 Report #: [id number] According to the prescription monitoring system, she is due to fill her medications this week and has not filled those prior to this appointment. Her morphine mEq was 25 MMEs. PHYSICAL EXAMINATION: GENERAL: This is alert and orientated and well developed, slightly anorexic female who is reporting her pain score at 7-8/10 today. HEENT: Normocephalic, atraumatic. Extraocular eye muscles are intact. She is wearing a mask. CHEST AND CARDIAC: Rhythm is regular. No shortness of breath noted. MUSCULOSKELETAL: She has marked kyphoscoliosis with rotational scoliosis noted throughout her spine. Tenderness in her lumbosacral region. Sacroiliac joints are tender bilaterally, greater on the left than the right. Lower extremity strength is symmetrical at 5/5. IMPRESSION: 1. Bilateral sacroiliac joint dysfunction. 2. Failed back syndrome, post-laminectomy syndrome. 3. Lumbar radiculopathy. 4. Atrial fibrillation, on anticoagulation therapy. 5. Management of high risk medications under terms of written opioid agreement. We reviewed the fact that opiate medications are being used to provide analgesia adequate to support activities of daily living, not attempting to achieve a specific pain score on the 0-10 Visual Analog Scale. The current opiate medications are providing sufficient analgesia to allow the patient to participate in activities of daily living. The patient is not exhibiting any aberrant behavior suggestive of drug diversion. The patient is not having any adverse reactions to medications. The patient is not suffering from daytime somnolence or mental acuity changes. The patient is managing opiate-induced constipation with appropriate mgig-jpo-gsnxxai agents and dietary considerations. The patient was counseled on concern for caution with operating a motor vehicle while using opiate medications. PLAN: 1. We discussed treatment options with the patient today. She is finding the Butrans patch not as beneficial as she had in the past finding end of dose failure by the 5th or 6th today. It decreases in efficacy and she is requiring more tramadol. Previously, she had been on tramadol 100 mg 3 times a day. She would like to return to this and see if it is more beneficial in controlling her pain. We did discuss a possible long-acting tramadol ER 100 mg tablets once a day, then supplementing her breakthrough pain with tramadol short acting throughout the day. We will trial her returning to 6 tablets of tramadol a day of the 50 mg first to see if this is beneficial. 2. I did remind the patient when she takes off her Butrans patch. She may have [facility] [address] [place] [address] PAIN MANAGEMENT CONSULTATION Name: AILYN VALDEZ Room #: REG [facility] Gabby.#: [id number] Admission: 09/01/20 Attend Phys: Lolita Urban Discharge: Date of : 47 Report #: [id number] some increased pain adjusting to the change in her opioid medication. 3. Scripts will be called in for tramadol 50 mg, #180, 2 tablets 3 times a day with 2 additional refills and we will void all Butrans scripts. 4. We discussed anti-inflammatory patch of Flector. The patient has utilized this in the past and found it beneficial. She is unable to take any oral anti-inflammatories due to her anticoagulation medication. The patient may utilize this patch at bedtime when her pain is definitely increased. Scripts set electronically for Flector, #30 patch with 2 refills. 5. She is not in need of any gabapentin at this time, but we encouraged her to continue 300 mg b.i.d. If she finds limited side effects, she may utilize one additional medication during the day if her neuropathy does continue to increase. 6. The patient will return in 3 months or as needed. The patient is seen today in collaboration with Dr. Daren Garcia. <ELECTRONICALLY SIGNED> By: Lolita Urban 09/02/20 0737 1141 1216 Lolita farmer
== END ==
LOC: PAIN 06:51
PROVIDERS: ATTEND Clinical Nurse Specialist Adult Health
DX: M53.3 Sacrococcygeal disorders, not elsewhere classified (principal); M96.1 Postlaminectomy syndrome, not elsewhere classified; M54.16 Radiculopathy, lumbar region; I48.91 Unspecified atrial fibrillation; Z79.891 Long term (current) use of opiate analgesic; Z79.899 Other long term (current) drug therapy

== ENCOUNTER → 2020-10-06 | Outpatient (CLI) | payer OTHER, MEDICARE ==
[~2020-10-06] VITALS: Ht 167.6 cm; Wt 49.9 kg
[~2020-10-06] MED LIST changes: +LISINOPRIL20 MG PO; +LYRICA 50 MG50 MG PO; -ZESTRIL20 MG PO
[2020-10-06 13:08] VITALS: BP 138/93
--- NOTE | 2020-10-06 13:17 | NUR ---
Pain Clinic Assessment: 1. History of Osteoarthritis: Left Lower Extremity Right Lower Extremity HANDS History of Rheumatoid Arthritis: DENIES 2. Height: 5 ft. 6 in. 167.6 cm. Weight: 110.0 lb. oz. 49.896 kg. Patient's BMI: 17.8 3. Vital Signs: BP: 138/93 Pulse: 78 Resp: 14 Temp: 02 Sat: 98 ECG Mon: 4. Pain Intensity: 3 W/MEDS 8 IN AM 5. Fall Risk: Dizziness: N Needs help standing or walking: Y Fallen in the last 3 months: N Fall risk comments: FELL SATURDAY/FELL FORWARD,LANDED ON KNEES. CAUGHT TOE ON CEMENT 6. Patient on Blood Thinner: KATHLEEN 7. History of Hypertension: Y 8. Opioid Therapy greater than 6 weeks: Y Opiate Contract Signed: 10/06/18 9. Risk Assessment Tool Provided: 0-LOW RISK 10. Functional Assessment Tool: 11. Recreational Drug Use: Never Drug Type: Tobacco Use: Never Smoker Tobacco Type: Amount or Packs/day: How Many Years: Alcohol Use: Yes Frequency: Quant:
== END | disposition home or self-care (01) ==
LOC: PAIN 06:49
PROVIDERS: ATTEND Anesthesiology Pain Medicine
DX: M53.3 Sacrococcygeal disorders, not elsewhere classified (principal); G89.29 Other chronic pain; I10 Essential (primary) hypertension; M19.90 Unspecified osteoarthritis, unspecified site; F32.9 Major depressive disorder, single episode, unspecified; Z98.890 Other specified postprocedural states; Z79.899 Other long term (current) drug therapy; Z79.891 Long term (current) use of opiate analgesic; Z79.01 Long term (current) use of anticoagulants; Z88.0 Allergy status to penicillin

== ENCOUNTER → 2020-10-11 | Outpatient (CLI) | payer OTHER, MEDICARE | LOC: HYPER 10:36 | PROVIDERS: ATTEND Specialist | DX: S81.011D Laceration without foreign body, right knee, subsequent encounter (principal); S80.12XD Contusion of left lower leg, subsequent encounter; R60.0 Localized edema; I87.2 Venous insufficiency (chronic) (peripheral); K21.9 Gastro-esophageal reflux disease without esophagitis; M32.8 Other forms of systemic lupus erythematosus; Z96.653 Presence of artificial knee joint, bilateral; Z90.49 Acquired absence of other specified parts of digestive tract; Z79.52 Long term (current) use of systemic steroids; Z95.5 Presence of coronary angioplasty implant and graft; W19.XXXD Unspecified fall, subsequent encounter ==

== ENCOUNTER → 2020-12-08 | Outpatient (CLI) | payer OTHER, MEDICARE ==
[~2020-12-08] VITALS: Ht 167.6 cm; Wt 51.8 kg
[2020-12-08 12:37] VITALS: BP 139/83
--- NOTE | 2020-12-08 12:47 | NUR ---
Pain Clinic Assessment: 1. History of Osteoarthritis: Left Lower Extremity Right Lower Extremity HANDS History of Rheumatoid Arthritis: DENIES 2. Height: 5 ft. 6 in. 167.6 cm. Weight: 114.2 lb. oz. 51.801 kg. Patient's BMI: 18.4 3. Vital Signs: BP: 139/83 Pulse: 72 Resp: 14 Temp: 02 Sat: 98 ECG Mon: 4. Pain Intensity: 8 5. Fall Risk: Dizziness: N Needs help standing or walking: N Fallen in the last 3 months: Y Fall risk comments: FELL JJ/FELL FORWARD,LANDED ON KNEES. CAUGHT TOE ON CEMENT 6. Patient on Blood Thinner: ELIQUIS 7. History of Hypertension: Y 8. Opioid Therapy greater than 6 weeks: Y Opiate Contract Signed: 10/06/18 9. Risk Assessment Tool Provided: 0-LOW RISK 10. Functional Assessment Tool: 11. Recreational Drug Use: Never Drug Type: Tobacco Use: Never Smoker Tobacco Type: Amount or Packs/day: How Many Years: Alcohol Use: Yes Frequency: Daily Quant: 1
== END | disposition home or self-care (01) ==
LOC: PAIN 06:51
PROVIDERS: ATTEND Anesthesiology Pain Medicine
DX: M53.3 Sacrococcygeal disorders, not elsewhere classified (principal); M46.1 Sacroiliitis, not elsewhere classified; G89.29 Other chronic pain; M47.896 Other spondylosis, lumbar region; M51.36 Other intervertebral disc degeneration, lumbar region; M41.86 Other forms of scoliosis, lumbar region; I10 Essential (primary) hypertension; M19.90 Unspecified osteoarthritis, unspecified site; Z98.890 Other specified postprocedural states; Z79.899 Other long term (current) drug therapy; Z79.01 Long term (current) use of anticoagulants; Z88.0 Allergy status to penicillin

== ENCOUNTER → 2021-01-18 | Outpatient (CLI) | payer OTHER, MEDICARE | LOC: CAT 14:08 | PROVIDERS: ATTEND Specialist | DX: K57.30 Diverticulosis of large intestine without perforation or abscess without bleeding (principal); M46.1 Sacroiliitis, not elsewhere classified; M47.816 Spondylosis without myelopathy or radiculopathy, lumbar region ==

== ENCOUNTER → 2021-03-09 | Outpatient (CLI) | payer OTHER, MEDICARE ==
[~2021-03-09] VITALS: Ht 167.6 cm; Wt 52.6 kg
[2021-03-09 11:37] VITALS: BP 155/70
--- NOTE | 2021-03-09 11:52 | NUR ---
Pain Clinic Assessment: 1. History of Osteoarthritis: Left Lower Extremity Right Lower Extremity HANDS History of Rheumatoid Arthritis: DENIES 2. Height: 5 ft. 6 in. 167.6 cm. Weight: 116.0 lb. oz. 52.617 kg. Patient's BMI: 18.7 3. Vital Signs: BP: 155/70 Pulse: 63 Resp: 14 Temp: 02 Sat: 96 ECG Mon: 4. Pain Intensity: 8 5. Fall Risk: Dizziness: N Needs help standing or walking: N Fallen in the last 3 months: N Fall risk comments: FELL JJ/FELL FORWARD,LANDED ON KNEES. CAUGHT TOE ON CEMENT 6. Patient on Blood Thinner: ELIQUIS 7. History of Hypertension: Y 8. Opioid Therapy greater than 6 weeks: Y Opiate Contract Signed: 10/06/18 9. Risk Assessment Tool Provided: 0-LOW RISK 10. Functional Assessment Tool: 11. Recreational Drug Use: Never Drug Type: Tobacco Use: Never Smoker Tobacco Type: Amount or Packs/day: How Many Years: Alcohol Use: Yes Frequency: Daily Quant: 1
== END | disposition home or self-care (01) ==
LOC: PAIN 08:32
PROVIDERS: ATTEND Anesthesiology Pain Medicine
DX: M53.3 Sacrococcygeal disorders, not elsewhere classified (principal); G89.29 Other chronic pain; M19.90 Unspecified osteoarthritis, unspecified site; Z98.890 Other specified postprocedural states; Z79.899 Other long term (current) drug therapy; Z79.01 Long term (current) use of anticoagulants; Z88.0 Allergy status to penicillin

== ENCOUNTER → 2021-06-05 | Outpatient (CLI) | payer OTHER, MEDICARE ==
[~2021-06-05] VITALS: Ht 167.6 cm; Wt 54.7 kg
[~2021-06-05] MED LIST changes: +CRANBERRY400 MG PO
[2021-06-05 13:56] VITALS: BP 149/84
--- NOTE | 2021-06-05 14:18 | NUR ---
Pain Clinic Assessment: 1. History of Osteoarthritis: Left Lower Extremity Right Lower Extremity HANDS History of Rheumatoid Arthritis: DENIES 2. Height: 5 ft. 6 in. 167.6 cm. Weight: 120.6 lb. oz. 54.704 kg. Patient's BMI: 19.5 3. Vital Signs: BP: 149/84 Pulse: 78 Resp: 16 Temp: 02 Sat: 98 ECG Mon: 4. Pain Intensity: 0-1 5. Fall Risk: Dizziness: N Needs help standing or walking: N Fallen in the last 3 months: N Fall risk comments: FELL JJ/FELL FORWARD,LANDED ON KNEES. CAUGHT TOE ON CEMENT 6. Patient on Blood Thinner: ELIQUIS 7. History of Hypertension: Y 8. Opioid Therapy greater than 6 weeks: Y Opiate Contract Signed: 10/06/18 9. Risk Assessment Tool Provided: 0-LOW RISK 10. Functional Assessment Tool: 11. Recreational Drug Use: Never Drug Type: Tobacco Use: Never Smoker Tobacco Type: Amount or Packs/day: How Many Years: Alcohol Use: Yes Frequency: Quant:
== END ==
LOC: PAIN 11:18
PROVIDERS: ATTEND Clinical Nurse Specialist Adult Health
DX: M47.816 Spondylosis without myelopathy or radiculopathy, lumbar region (principal); M41.9 Scoliosis, unspecified; M32.9 Systemic lupus erythematosus, unspecified; Z79.891 Long term (current) use of opiate analgesic; Z79.899 Other long term (current) drug therapy

== ENCOUNTER → 2021-09-18 | Outpatient (CLI) | payer OTHER, MEDICARE ==
[~2021-09-18] VITALS: Ht 167.6 cm; Wt 54.7 kg
[2021-09-18 12:58] VITALS: BP 159/92
--- NOTE | 2021-09-18 13:08 | NUR ---
Pain Clinic Assessment: 1. History of Osteoarthritis: Left Lower Extremity Right Lower Extremity HANDS History of Rheumatoid Arthritis: DENIES 2. Height: 5 ft. 6 in. 167.6 cm. Weight: 120.6 lb. oz. 54.704 kg. Patient's BMI: 19.5 3. Vital Signs: BP: 159/92 Pulse: 62 Resp: 16 Temp: 02 Sat: 100 ECG Mon: 4. Pain Intensity: 3 5. Fall Risk: Dizziness: N Needs help standing or walking: N Fallen in the last 3 months: N Fall risk comments: FELL JJ/FELL FORWARD,LANDED ON KNEES. CAUGHT TOE ON CEMENT 6. Patient on Blood Thinner: ELIQUIS 7. History of Hypertension: Y 8. Opioid Therapy greater than 6 weeks: Y Opiate Contract Signed: 10/06/18 9. Risk Assessment Tool Provided: 0-LOW RISK 10. Functional Assessment Tool: 11. Recreational Drug Use: Never Drug Type: Tobacco Use: Never Smoker Tobacco Type: Amount or Packs/day: How Many Years: Alcohol Use: Yes Frequency: Quant:
== END ==
LOC: PAIN 11:14
PROVIDERS: ATTEND Clinical Nurse Specialist Adult Health
DX: M47.816 Spondylosis without myelopathy or radiculopathy, lumbar region (principal); M51.26 Other intervertebral disc displacement, lumbar region; M41.86 Other forms of scoliosis, lumbar region; M19.90 Unspecified osteoarthritis, unspecified site; Z88.0 Allergy status to penicillin; Z79.899 Other long term (current) drug therapy